=== PATIENT | male | born 1930 | race Caucasian/White ===

== ENCOUNTER 2016-03-23 08:57 | Inpatient (IN) | payer MEDICARE, BC ==
[2016-03-23] MEDS ORDERED: IPRATROPIUM-ALBUTEROL 3 ML NEB INHALATION STA (09:24)
[2016-03-23] MEDS ORDERED: SODIUM CHLORIDE 0.9% 1,000 ML IV STA (09:24)
--- NOTE | 2016-03-23 09:30 | ED ---
SOB HPI - General Chief Complaint: Shortness of Breath Stated Complaint: LABORED BREATHING, WEAKNESS, HEART HX Time Seen by Provider: 03/23/16 09:12 Source: patient, family, RN notes reviewed Mode of arrival: wheelchair Limitations: no limitations - History of Present Illness Initial Comments: This is a 85-year-old male who presents with complaints of dyspnea also some generalized weakness fluid retention. He does have chronic diarrhea he did have an episode this morning. He previously was on oh p.m. which she cannot get any more now is on morphine sulfate. He feels generally weak at this time denies any fevers chills or sweats no chest pain no cough no overt abdominal pain. The patient recently had complaints of water retention and was placed on twice a day dosing of his water pill. MD Complaint: shortness of breath - Related Data Home Medications Medication Instructions Recorded Confirmed Allopurinol [Zyloprim] 300 mg PO HS 03/23/16 03/23/16 Aspirin 81 mg PO HS 03/23/16 03/23/16 Cholecalciferol [Vitamin D3] 1,000 unit PO DAILY 03/23/16 03/23/16 Finasteride [Proscar] 5 mg PO HS 03/23/16 03/23/16 Furosemide [Lasix] 40 mg PO DAILY 03/23/16 03/23/16 Levothyroxine Sodium [Synthroid] 75 mcg PO DAILY 03/23/16 03/23/16 Losartan [Cozaar] 50 mg PO HS 03/23/16 03/23/16 Metoprolol Succinate (ER) [Toprol 50 mg PO BID 03/23/16 03/23/16 Xl] Morphine Oral Soln [Morphine Oral 3 mg PO TID 03/23/16 03/23/16 Soln 2 MG/ML] Pravastatin Sodium [Pravachol] 20 mg PO MOTUWETHFR 03/23/16 03/23/16 Ranitidine HCl 300 mg PO HS 03/23/16 03/23/16 Terazosin HCl [Hytrin] 10 mg PO HS 03/23/16 03/23/16 Zolpidem [Ambien] 10 mg PO HS PRN 03/23/16 03/23/16 Allergies Allergy/AdvReac Type Severity Reaction Status Date / Time Penicillins Allergy Rash/Hives Verified 03/23/16 11:34 pneumococcal vaccine Allergy Rash/Hives Verified 03/23/16 11:34 Review of Systems ROS Statement: Those systems with pertinent positive or pertinent negative responses have been documented in the HPI. ROS Other: All systems not noted in ROS Statement are negative. Past Medical History Past Medical History: Heart Failure, GERD/Reflux, Hyperlipidemia, Hypertension, Thyroid Disorder History of Any Multi-Drug Resistant Organisms: None Reported Past Surgical History: AICD, Bowel Resection Past Psychological History: No Psychological Hx Reported Smoking Status: Former smoker Past Alcohol Use History: None Reported Past Drug Use History: None Reported General Exam - General Exam Comments Initial Comments: This is a well-developed well-nourished awake alert oriented 3 male Limitations: no limitations General appearance: alert, in no apparent distress Head exam: Present: atraumatic, normocephalic, normal inspection Eye exam: Present: normal appearance, PERRL, EOMI. Absent: scleral icterus, conjunctival injection, periorbital swelling ENT exam: Present: mucous membranes dry Neck exam: Present: normal inspection. Absent: tenderness, meningismus, lymphadenopathy Respiratory exam: Present: decreased breath sounds. Absent: respiratory distress, wheezes, rales, rhonchi, stridor Cardiovascular Exam: Present: regular rate, normal rhythm, normal heart sounds, other (Occasional extrasystoles). Absent: systolic murmur, diastolic murmur, rubs, gallop, clicks GI/Abdominal exam: Present: soft, distended, normal bowel sounds, other (Some increased tympany). Absent: tenderness, guarding, rebound, rigid, bruit, pulsatile mass, hernia Rectal exam: Present: deferred Extremities exam: Present: normal inspection, full ROM, normal capillary refill. Absent: tenderness, pedal edema, joint swelling, calf tenderness Back exam: Present: normal inspection Neurological exam: Present: alert, oriented X3, CN II-XII intact Psychiatric exam: Present: normal affect, normal mood Skin exam: Present: warm, dry, intact, normal color. Absent: rash Course Vital Signs 03/23/16 03/23/16 03/23/16 09:01 09:27 09:28 Temperature 97.8 F Pulse Rate 98 109 H Respiratory 20 109 H 18 Rate Blood Pressure 128/92 113/73 O2 Sat by Pulse 96 98 Oximetry 01/07/17 01/07/17 01/07/17 10:05 10:13 10:14 Temperature Pulse Rate 100 92 87 Respiratory 18 Rate Blood Pressure 133/70 O2 Sat by Pulse 98 Oximetry 03/23/16 03/23/16 10:27 11:18 Temperature Pulse Rate 81 77 Respiratory 18 18 Rate Blood Pressure 131/69 121/79 O2 Sat by Pulse 97 99 Oximetry - Reevaluation(s) Reevaluation #1: 03/23/16 12:31 Patient is feeling slightly better after initial treatment. Reevaluation #2: 03/23/16 12:31 Did discuss the findings with patient family patient will be admitted Reevaluation #3: 03/23/16 12:31 Patient is demonstrating hypokalemia a low magnesium in addition to congestive heart failure. Medical Decision Making - Lab Data Result diagrams: 03/23/16 09:20 03/23/16 09:20 Lab Results 03/23/16 03/23/16 03/23/16 Range/Units 09:20 09:20 09:20 WBC 3.4 L (3.8-10.6) k/uL RBC 3.46 L (4.30-5.90) m/uL Hgb 9.9 L (13.0-17.5) gm/dL Hct 32.8 L (39.0-53.0) % MCV 94.8 (80.0-100.0) fL MCH 28.6 (25.0-35.0) pg MCHC 30.2 L (31.0-37.0) g/dL RDW 16.2 H (11.5-15.5) % Plt Count 95 L (150-450) k/uL Neutrophils % 77 % Lymphocytes % 14 % Monocytes % 7 % Eosinophils % 0 % Basophils % 0 % Neutrophils # 2.6 (1.3-7.7) k/uL Lymphocytes # 0.5 L (1.0-4.8) k/uL Monocytes # 0.2 (0-1.0) k/uL Eosinophils # 0.0 (0-0.7) k/uL Basophils # 0.0 (0-0.2) k/uL Hypochromasia Marked Poikilocytosis Moderate Anisocytosis Slight PT (9.0-12.0) sec INR (<1.1) APTT (22.0-30.0) sec Sodium 145 (137-145) mmol/L Potassium 3.1 L (3.5-5.1) mmol/L Chloride 108 H (98-107) mmol/L Carbon Dioxide 23 (22-30) mmol/L Anion Gap 14 mmol/L BUN 16 (9-20) mg/dL Creatinine 1.00 (0.66-1.25) mg/dL Est GFR (MDRD) Af Amer >60 (>60 ml/min/1.73 sqM) Est GFR (MDRD) Non-Af >60 (>60 ml/min/1.73 sqM) Glucose 108 H (74-99) mg/dL Calcium 8.9 (8.4-10.2) mg/dL Magnesium 1.7 (1.6-2.3) mg/dL Total Bilirubin 1.5 H (0.2-1.3) mg/dL AST 14 L (17-59) U/L ALT 30 (21-72) U/L Alkaline Phosphatase 93 (38-126) U/L Total Creatine Kinase 43 L (55-170) U/L CK-MB (CK-2) 0.8 (0.0-2.4) ng/mL CK-MB (CK-2) Rel Index 1.9 Troponin I <0.012 (0.000-0.034) ng/mL NT-Pro-B Natriuret Pep pg/mL Total Protein 6.6 (6.3-8.2) g/dL Albumin 3.7 (3.5-5.0) g/dL TSH <0.015 L (0.465-4.680) mIU/L Free T4 2.05 (0.78-2.19) ng/dL 03/23/16 03/23/16 Range/Units 09:20 09:20 WBC (3.8-10.6) k/uL RBC (4.30-5.90) m/uL Hgb (13.0-17.5) gm/dL Hct (39.0-53.0) % MCV (80.0-100.0) fL MCH (25.0-35.0) pg MCHC (31.0-37.0) g/dL RDW (11.5-15.5) % Plt Count (150-450) k/uL Neutrophils % % Lymphocytes % % Monocytes % % Eosinophils % % Basophils % % Neutrophils # (1.3-7.7) k/uL Lymphocytes # (1.0-4.8) k/uL Monocytes # (0-1.0) k/uL Eosinophils # (0-0.7) k/uL Basophils # (0-0.2) k/uL Hypochromasia Poikilocytosis Anisocytosis PT 13.6 H (9.0-12.0) sec INR 1.4 (<1.1) APTT 24.9 (22.0-30.0) sec Sodium (137-145) mmol/L Potassium (3.5-5.1) mmol/L Chloride (98-107) mmol/L Carbon Dioxide (22-30) mmol/L Anion Gap mmol/L BUN (9-20) mg/dL Creatinine (0.66-1.25) mg/dL Est GFR (MDRD) Af Amer (>60 ml/min/1.73 sqM) Est GFR (MDRD) Non-Af (>60 ml/min/1.73 sqM) Glucose (74-99) mg/dL Calcium (8.4-10.2) mg/dL Magnesium (1.6-2.3) mg/dL Total Bilirubin (0.2-1.3) mg/dL AST (17-59) U/L ALT (21-72) U/L Alkaline Phosphatase (38-126) U/L Total Creatine Kinase (55-170) U/L CK-MB (CK-2) (0.0-2.4) ng/mL CK-MB (CK-2) Rel Index Troponin I (0.000-0.034) ng/mL NT-Pro-B Natriuret Pep 8410 pg/mL Total Protein (6.3-8.2) g/dL Albumin (3.5-5.0) g/dL TSH (0.465-4.680) mIU/L Free T4 (0.78-2.19) ng/dL - EKG Data -: EKG Interpreted by Me (Pacer rhythm rate was 92 QRS duration 144 QT/QTC of 420/519 occasional extr) Critical Care Time Critical Care Time: Yes Critical Care Time: 32 minutes of critical care time which includes initial presentation with history physical lab and x-rays reevaluation patient several occasions to responsive as the patient and family members regarding the findings. Discussion with the admitting physician admission orders review of old charting as available and Disposition Clinical Impression: Congestive heart failure, Hypokalemia, Anemia Disposition: ADMITTED IP TO THIS HOSP Condition: Stable
[2016-03-23 09:37] LABS: Anisocytosis Slight; Basophils % (A) 0 %; CH 29.4; CHCM 31.3; Eosinophils % (A) 0 %; HCT 32.8 % (39.0-53.0); HDW 4.16; HGB 9.9 gm/dL (13.0-17.5); Hypochromasia Marked; Luc # (Auto) 0.06; Luc % (Auto) 2; Lymphocytes # (A) 0.5 k/uL (1.0-4.8); Lymphocytes % (A) 14 %; MCH 28.6 pg (25.0-35.0); MCHC 30.2 g/dL (31.0-37.0); MCV 94.8 fL (80.0-100.0); Mean Platelet Volume 8.7; Monocytes # (A) 0.2 k/uL (0-1.0); Monocytes % (A) 7 %; Neutrophils # (A) 2.6 k/uL (1.3-7.7); Neutrophils % (A) 77 %; Poikilocytosis Moderate; RBC 3.46 m/uL (4.30-5.90); RDW 16.2 % (11.5-15.5); WBC 3.4 k/uL (3.8-10.6); WBC (Perox) 3.61
[2016-03-23 09:46] LABS: ALT 30 U/L (21-72); AST 14 U/L (17-59); Alkaline Phosphatase 93 U/L (38-126); Anion Gap 14 mmol/L; Blood Urea Nitrogen 16 mg/dL (9-20); Calcium 8.9 mg/dL (8.4-10.2); Carbon Dioxide 23 mmol/L (22-30); Chloride 108 mmol/L (98-107); Glucose 108 mg/dL (74-99); Magnesium 1.7 mg/dL (1.6-2.3); Non-African American GFR(MDRD) >60 (>60 ml/min/1.73 sqM); Potassium 3.1 mmol/L (3.5-5.1); Sodium 145 mmol/L (137-145); Total Bilirubin 1.5 mg/dL (0.2-1.3); Total Protein 6.6 g/dL (6.3-8.2)
[2016-03-23 09:51] LABS: INR 1.4 (<1.1); Partial Thromboplastin Time 24.9 sec (22.0-30.0); Prothrombin Time 13.6 sec (9.0-12.0)
--- NOTE | 2016-03-23 09:53 | XR ---
EXAMINATION TYPE: XR chest 2V DATE OF EXAM: 03/23/2016 9:47 AM COMPARISON: Chest x-ray August 07, 2011 HISTORY: Labored breathing. TECHNIQUE: Frontal and lateral views of the chest are obtained. FINDINGS: The osseous structures are demineralized. There is cardiomegaly with atherosclerotic and e ctatic thoracic aorta redemonstrated. Multilead pacemaker/AICD is again seen. Sternal wires and media stinal clips are redemonstrated. There is chronic parenchymal change with new mild central vascular c ongestion suspected. There is no suspicious focal airspace opacity, pleural effusion, or pneumothorax seen bilaterally IMPRESSION: Chronic parenchymal and/or emphysematous change is redemonstrated. Suspect CHF exacerbat ion as there is redemonstration of cardiomegaly with new mild central vascular congestion felt presen t.
[2016-03-23 09:56] LABS: Creatine Kinase 43 U/L (55-170)
--- NOTE | 2016-03-23 09:57 | XR ---
EXAMINATION TYPE: XR abdomen 1V DATE OF EXAM: 03/23/2016 9:47 AM CLINICAL HISTORY: Abdominal pain with diarrhea this morning. TECHNIQUE: 2 upright KUB images of the abdomen are obtained. COMPARISON: CT abdomen and pelvis August 09, 2011. Acute abdominal series August 11, 2011 FINDINGS: Epicardial pacer wires are noted. Scattered gas is seen in non-distended small bowel loops . Gas and fecal material is seen in non-distended colon. A few scattered air-fluid levels in the upp er abdomen are seen. No pneumoperitoneum is identified. Osseous structures are demineralized. There i s increasing scoliosis in the lumbar spine present. There is moderate degenerative change or joint sp lillian loss in both hips. Vascular calcification bilateral groin region is seen. There are large bladder calculi redemonstrated. There may be new 11 mm left mid ureter calculus just above left iliac wing. There is cardiomegaly with multi lead pacemaker/AICD. Lung bases are clear. IMPRESSION: Overall nonspecific likely nonobstructive bowel gas pattern.
[2016-03-23 10:09] LABS: Creatine Kinase MB 0.8 ng/mL (0.0-2.4); Troponin I <0.012 ng/mL (0.000-0.034)
[2016-03-23] MEDS ORDERED: FUROSEMIDE 10 MG/ML 4 ML VIAL IV STA (10:55)
[2016-03-23] MEDS ORDERED: NITROGLYCERIN OINT 1 INCH/GM PACKET TOPICAL STA (10:55)
[2016-03-23] MEDS: MAGNESIUM SULFATE-D5W PMX 1 GM in DEXTROSE/WATER 1 100ML.BAG IVPB SCH ×3 (11:15→22:15)
[2016-03-23] MEDS: POTASSIUM CHLORIDE 10 MEQ, LIDOCAINE 2% INJ 10 MG in SODIUM CHLORIDE 0.9% 100 ML IVPB SCH ×2 (11:15→12:23)
[2016-03-23] MEDS ORDERED: MORPHINE ORAL SOLN 10 MG/5 ML CUP PO STA (12:01)
[2016-03-23] MEDS: SODIUM CHLORIDE 0.9% 1,000 ML IV SCH (13:41)
--- NOTE | 2016-03-23 13:50 | P.HPIM ---
History of Present Illness H&P Date: 03/23/16 Chief Complaint: Shortness of breath This is an 85-year-old male. His primary care physician is Dr. Brayan An and his backup administrator is Dr. Magaña. 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 He also has history of bowel obstruction and peritonitis status post bowel resection with chronic diarrhea and is on MS to slow diarrhea. He gives history that since he started having episodes where he was weak and flushed and maybe was going to pass out but did not. He has also had shortness of breathand a warm sensation that was coming of his body from his feet. He states his defibrillator did not go off.. He last saw Dr. Brayan An on Friday and his Lasix 40 mg daily was increased frequency to twice daily. He thought it did a little bit of help for him but only a little. His daughter came to be with the patient and his and she thought he was significantly short of breath and brought him into [facility] emergency center this morning. His chest x-ray showed chronic parenchymal or emphysematous changes with congestive heart failure exacerbation and cardiomegaly. Abdominal x-rays showed nonobstructive bowel gas pattern. BNP 8410, magnesium 1.7, potassium 3.1. White count was 3.4, hemoglobin 9.9 and platelet count 95. Troponin 0.012. Initial blood pressure was 128/92. Patient has received potassium and magnesium replacement and Lasix 40 mg IV push with improvement of his symptoms of shortness of breath. He also received a DuoNeb treatment. Patient is now being admitted to the selective care unit and cardiology consult requested. Review of Systems All systems: negative Constitutional: Reports weight loss, Denies chills, Denies fever Eyes: denies blurred vision, denies pain Ears, nose, mouth and throat: Denies headache, Denies sore throat Cardiovascular: Reports decreased exercise tolerance, Reports dyspnea on exertion, Reports leg edema, Reports shortness of breath, Denies chest pain, Denies edema Respiratory: Reports dyspnea, Denies cough, Denies cough with sputum, Denies excessive sputum, Denies hemoptysis, Denies home oxygen Gastrointestinal: Denies abdominal pain, Denies diarrhea, Denies nausea, Denies vomiting Musculoskeletal: Denies myalgias Integumentary: Denies pruritus, Denies rash Neurological: Denies numbness, Denies weakness Psychiatric: Denies anxiety, Denies depression Endocrine: Denies fatigue, Denies weight change Past Medical History Past Medical History: Coronary Artery Disease (CAD), Heart Failure, GERD/Reflux , Hyperlipidemia, Hypertension, Thyroid Disorder Additional Past Medical History / Comment(s): Chronic systolic heart failure with ischemic cardiomyopathy status post pacemaker/AICD, myocardial infarction 2, one in 1996 and 2004, gout, vitamin D deficiency, chronic diarrhea on morphine sulfate History of Any Multi-Drug Resistant Organisms: None Reported Past Surgical History: AICD, Appendectomy, Bowel Resection, Cardiac Valve Replacement, Coronary Bypass/CABG Additional Past Surgical History / Comment(s): 1 vessel CABG and aortic valve replacement in 2004, pacemaker/AICD, bilateral cataract removal and intraocular lens implants, hemorrhoidectomy Past Psychological History: No Psychological Hx Reported Smoking Status: Former smoker Past Alcohol Use History: None Reported Additional Past Alcohol Use History / Comment(s): Smoker one and half to 2 packs per day for 50 years and quit in 1996. He denies any medical marijuana, marijuana, street drug or alcohol use. Past Drug Use History: None Reported - Past Family History Father Additional Family Medical History / Comment(s): Father at a young age in a house fire. Mother Additional Family Medical History / Comment(s): Mother in her 70s from congestive heart failure and coronary artery disease. Brother(s) Additional Family Medical History / Comment(s): Patient has 2 brothers. One from alcoholic cirrhosis. One is alive with history of osteoarthritis. Sister(s) Additional Family Medical History / Comment(s): Patient has one sister with recurrence of breast cancer. Daughter(s) Additional Family Medical History / Comment(s): Patient has one daughter with osteoarthritis of the spine. Son(s) Additional Family Medical History / Comment(s): Patient has 2 sons one has osteoarthritis and chronic back pain. One has bipolar disorder. Medications and Allergies Home Medications Medication Instructions Recorded Confirmed Type Allopurinol [Zyloprim] 300 mg PO HS 03/23/16 03/23/16 History Aspirin 81 mg PO HS 03/23/16 03/23/16 History Cholecalciferol [Vitamin D3] 1,000 unit PO DAILY 03/23/16 03/23/16 History Finasteride [Proscar] 5 mg PO HS 03/23/16 03/23/16 History Furosemide [Lasix] 40 mg PO DAILY 03/23/16 03/23/16 History Levothyroxine Sodium [Synthroid] 75 mcg PO DAILY 03/23/16 03/23/16 History Losartan [Cozaar] 50 mg PO HS 03/23/16 03/23/16 History Metoprolol Succinate (ER) [Toprol 50 mg PO BID 03/23/16 03/23/16 History Xl] Morphine Oral Soln [Morphine Oral 3 mg PO TID 03/23/16 03/23/16 History Soln 2 MG/ML] Pravastatin Sodium [Pravachol] 20 mg PO MOTUWETHFR 03/23/16 03/23/16 History Ranitidine HCl 300 mg PO HS 03/23/16 03/23/16 History Terazosin HCl [Hytrin] 10 mg PO HS 03/23/16 03/23/16 History Zolpidem [Ambien] 10 mg PO HS PRN 03/23/16 03/23/16 History Allergies Allergy/AdvReac Type Severity Reaction Status Date / Time Penicillins Allergy Rash/Hives Verified 03/23/16 11:34 pneumococcal vaccine Allergy Rash/Hives Verified 03/23/16 11:34 Physical Exam Gen: This is an 85-year-old male. He is resting on a stretcher and appears to be in no acute distress. HEENT: Head is atraumatic, normocephalic. Pupils equal, round. Sclerae is anicteric. Conjunctiva pink. Mucous membranes of the mouth are slightly dry. NECK: Supple. No JVD. No lymphadenopathy. No thyromegaly. LUNGS: Rhonchi to the bilateral bases. No wheezes. No chest wall tenderness. No intercostal retractions. HEART: Regular rate and rhythm. Systolic ejection murmur 2/6 at the left sternal border. Pacemaker noted to the left anterior chest wall. ABDOMEN: Soft. Bowel sounds are present. No masses. No tenderness. EXTREMITIES: Trace bilateral pedal edema. No calf tenderness. Dorsalis pedis + 1 bilaterally. NEUROLOGICAL: Patient is awake, alert and oriented x3. Cranial nerves 2 through 12 are grossly intact. Results CBC & Chem 7: 03/24/16 04:33 03/24/16 04:33 Thrombosis Risk Factor Assmnt - DVT/VTE Prophylaxis DVT/VTE Prophylaxis: Pharmacologic Prophylaxis ordered, Mechanical Prophylaxis ordered Assessment and Plan Plan: 1. Acute on chronic systolic heart failure in a patient with history of ischemic cardiomyopathy. Continue Lasix 40 mg IV every 12 hours. PRETTY and daily weights. Cardiology consult. Echocardiogram. 2. Nonsustained V tach due to electrolyte abnormalities with hypomagnesemia and hypokalemia status post replacement in the emergency center.continue replacement. Cardiology consult. Patient may need defibrillator interrogated. 3. Pancytopenia of unclear etiology.haptoglobin, folate,iron panel, ferritin, GGT, LDH, vitamin B12 ordered. 4. History of coronary artery disease status post 1 vessel CABG and aortic valve disease status post aortic valve replacement. Continue Toprol-XL 50 mg twice daily, aspirin 81 mg daily, Pravachol 20 mg Friday through Friday. 5. Hypertension, hypertensive cardio vascular disease with left ventricular hypertrophy. Continue Toprol-XL 50 mg twice daily, losartan 50 mg at bedtime. 6. Hyperlipidemia. Continue Pravachol 40 mg Friday through Friday. 7. Hypothyroidism with TSH less than 0.015. Levothyroxine on hold patient was on 75 g daily. 8. Benign prostatic hypertrophy. Continue Yas Zosyn 10 mg at bedtime. 9. Gout. Hold allopurinol 300 mg at bedtime. 10. Vitamin D deficiency. Continue supplementation. 11. DVT prophylaxis. ROGELIO hose. No heparin due to thrombocytopenia. 12. Gastrointestinal prophylaxis. Protonix daily. Discharge plan: To be determined. PT and OT requested Impression and plan of care have been directed as dictated by the signing physician. Jessie Morales nurse practitioner acting as scribe for signing physician. Time with Patient: Greater than 30
[2016-03-23] MEDS ORDERED: MAGNESIUM SULFATE-D5W PMX 1 GM in DEXTROSE/WATER 1 100ML.BAG IVPB ONE (14:20)
[2016-03-23] MEDS: POTASSIUM CHLORIDE ER 20 MEQ TAB.ER PO SCH ×3 (15:58→20:16)
[2016-03-23] MEDS: MORPHINE ORAL SOLN 10 MG/5 ML CUP PO SCH ×2 (15:59→20:17)
[2016-03-23] MEDS: NITROGLYCERIN OINT 1 INCH/GM PACKET TOPICAL SCH ×2 (16:54→20:20)
[2016-03-23 17:32] LABS: Reticulocyte % 2.5 % (0.5-2.0)
[2016-03-23] MEDS ORDERED: DEXTROSE 5% IN WATER 100 ML with AMIODARONE 150 MG IV ONE (17:39)
[2016-03-23 17:50] LABS: % Iron Saturation 9.7 % (20-50)
[2016-03-23] MEDS: AMIODARONE 450 MG in DEXTROSE 5% IN WATER 250 ML IV SCH ×2 (18:02)
[2016-03-23 19:08] LABS: Magnesium 2.3 mg/dL (1.6-2.3); Potassium 3.8 mmol/L (3.5-5.1)
[2016-03-23] MEDS: ALLOPURINOL 300 MG TAB PO SCH (20:16)
[2016-03-23] MEDS: ASPIRIN 81 MG CHEW PO SCH (20:16)
[2016-03-23] MEDS: TERAZOSIN 5 MG CAP PO SCH (20:16)
[2016-03-23] MEDS: FUROSEMIDE 10 MG/ML 4 ML VIAL IV SCH (20:17)
[2016-03-23] MEDS: FINASTERIDE 5 MG TAB PO SCH (20:17)
[2016-03-23] MEDS: METOPROLOL SUCCINATE (ER) 25 MG TAB.ER.24H PO SCH (20:19)
[2016-03-23] MEDS ORDERED: METOPROLOL SUCCINATE (ER) 50 MG TAB.ER.24H PO SCH (21:00)
[2016-03-23] MEDS ORDERED: LOSARTAN 50 MG TAB PO SCH (21:00)
[2016-03-23] MEDS ORDERED: FAMOTIDINE 20 MG TAB PO SCH (21:00)
[2016-03-23 23:09] LABS: Glucose,Whole Blood 145 mg/dL (75-99)
[2016-03-24] MEDS: MAGNESIUM SULFATE-D5W PMX 1 GM in DEXTROSE/WATER 1 100ML.BAG IVPB SCH (00:07)
[2016-03-24] MEDS: ZOLPIDEM 10 MG TAB PO PRN ×2 (00:07→21:55)
[2016-03-24] MEDS: LIDOCAINE-D5W PMX 2G/500ML 2,000 MG in DEXTROSE/WATER 1 500ML.BAG IV SCH (00:56)
[2016-03-24] MEDS: AMIODARONE 450 MG in DEXTROSE 5% IN WATER 250 ML IV SCH ×6 (01:34→18:01)
[2016-03-24 05:06] LABS: Basophils % (A) 0 %; CH 28.7; CHCM 29.8; Eosinophils % (A) 0 %; HCT 30.4 % (39.0-53.0); HDW 4.03; HGB 9.1 gm/dL (13.0-17.5); Hypochromasia Marked; Luc # (Auto) 0.12; Luc % (Auto) 3; Lymphocytes # (A) 0.7 k/uL (1.0-4.8); Lymphocytes % (A) 20 %; MCH 29.2 pg (25.0-35.0); MCHC 30.1 g/dL (31.0-37.0); MCV 96.9 fL (80.0-100.0); Mean Platelet Volume 7.5; Monocytes # (A) 0.2 k/uL (0-1.0); Monocytes % (A) 7 %; Neutrophils # (A) 2.3 k/uL (1.3-7.7); Neutrophils % (A) 70 %; Poikilocytosis Moderate; RBC 3.14 m/uL (4.30-5.90); RDW 15.8 % (11.5-15.5); WBC 3.4 k/uL (3.8-10.6); WBC (Perox) 3.63
[2016-03-24 05:17] LABS: Anion Gap 10 mmol/L; Blood Urea Nitrogen 13 mg/dL (9-20); Calcium 8.5 mg/dL (8.4-10.2); Carbon Dioxide 25 mmol/L (22-30); Chloride 106 mmol/L (98-107); Glucose 115 mg/dL (74-99); Magnesium 2.5 mg/dL (1.6-2.3); Non-African American GFR(MDRD) >60 (>60 ml/min/1.73 sqM); Potassium 3.7 mmol/L (3.5-5.1); Sodium 141 mmol/L (137-145)
[2016-03-24] MEDS ORDERED: POTASSIUM CHLORIDE ER 20 MEQ TAB.ER PO SCH (06:00)
[2016-03-24] MEDS ORDERED: LEVOTHYROXINE 75 MCG TAB PO SCH (06:30)
[2016-03-24] MEDS: LEVOTHYROXINE 50 MCG TAB PO SCH (06:55)
[2016-03-24] MEDS: MORPHINE ORAL SOLN 10 MG/5 ML CUP PO SCH ×3 (08:28→17:11)
[2016-03-24] MEDS: FUROSEMIDE 10 MG/ML 4 ML VIAL IV SCH (08:30)
[2016-03-24] MEDS: POTASSIUM CHLORIDE ER 20 MEQ TAB.ER PO SCH (08:31)
[2016-03-24] MEDS: METOPROLOL SUCCINATE (ER) 25 MG TAB.ER.24H PO SCH ×2 (08:31→18:40)
[2016-03-24] MEDS: NITROGLYCERIN OINT 1 INCH/GM PACKET TOPICAL SCH ×3 (08:31→17:11)
[2016-03-24] MEDS ORDERED: FUROSEMIDE 40 MG TAB PO SCH (09:00)
--- NOTE | 2016-03-24 09:50 | P.PN ---
Subjective This is an 85-year-old male. His primary care physician is Dr. Brayan An and his special events driver is Dr. Magaña. 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 He also has history of bowel obstruction and peritonitis status post bowel resection with chronic diarrhea and is on MS to slow diarrhea. He gives history that since he started having episodes where he was weak and flushed and maybe was going to pass out but did not. He has also had shortness of breathand a warm sensation that was coming of his body from his feet. He states his defibrillator did not go off.. He last saw Dr. Brayan An on Friday and his Lasix 40 mg daily was increased frequency to twice daily. He thought it did a little bit of help for him but only a little. His daughter came to be with the patient and his and she thought he was significantly short of breath and brought him into [facility] emergency center this morning. His chest x-ray showed chronic parenchymal or emphysematous changes with congestive heart failure exacerbation and cardiomegaly. Abdominal x-rays showed nonobstructive bowel gas pattern. BNP 8410, magnesium 1.7, potassium 3.1. White count was 3.4, hemoglobin 9.9 and platelet count 95. Troponin 0.012. Initial blood pressure was 128/92. Patient has received potassium and magnesium replacement and Lasix 40 mg IV push with improvement of his symptoms of shortness of breath. He also received a DuoNeb treatment. Patient is now being admitted to the selective care unit and cardiology consult requested. 03/24: patient continued to have episodes of ventricular tachycardia and has been transferred to the intensive care unit and started on lidocaine drip and amiodarone drip. Patient states he is feeling much better today. he is having less frequent runs of V. tach. CODE STATUS has been changed to DO NOT RESUSCITATE. Objective - Vital Signs Vital signs: Vital Signs Temp 97.5 F L 03/24/16 08:00 Pulse 69 03/24/16 08:00 Resp 19 03/24/16 08:00 BP 101/64 03/24/16 08:00 Pulse Ox 96 03/24/16 08:00 Intake & Output 03/23/16 03/24/16 03/24/16 18:59 06:59 18:59 Intake Total 100 952.1 166.6 Output Total 300 600 50 Balance -200 352.1 116.6 Weight 69.1 kg 73.7 kg Intake: IV 133.2 66.6 Amiodarone 450 mg In 133.2 66.6 Dextrose 5% in Water 250 ml @ 1 MG/MIN 34.53 mls/ hr IV .Q7H31M BARB Rx#: [id number] Intake, IV Titration 818.9 100 Amount Amiodarone 450 mg In 358.9 Dextrose 5% in Water 250 ml @ 1 MG/MIN 34.53 mls/ hr IV .Q7H31M BARB Rx#: [id number] Lidocaine-D5w Pmx 2G/ 180 60 500Ml 2,000 mg In Dextrose/Water 1 500ml. bag @ 2 MG/MIN 30 mls/hr IV .[id number] BARB Rx#: [id number] Magnesium Sulfate-D5w Pmx 200 1 gm In Dextrose/Water 1 100ml.bag @ 100 mls/hr IVPB Q1H BARB Rx#: [id number] Sodium Chloride 0.9% 1, 20 000 ml @ 100 mls/hr IV . Q10H STA Rx#:[id number] Sodium Chloride 0.9% 1, 60 40 000 ml @ 20 mls/hr IV . Q24H BARB Rx#:[id number] Oral 100 Output: Urine 300 600 50 Other: Voiding Method Bedside Commode Urinal # Voids 1 # Bowel Movements 1 - Exam Gen: This is an 85-year-old male. He is resting on a stretcher and appears to be in no acute distress. HEENT: Head is atraumatic, normocephalic. Pupils equal, round. Sclerae is anicteric. Conjunctiva pink. Mucous membranes of the mouth are slightly dry. NECK: Supple. No JVD. No lymphadenopathy. No thyromegaly. LUNGS: Slightly diminished but otherwise clear to auscultation. No wheezes. No chest wall tenderness. No intercostal retractions. HEART: Regular rate and rhythm. Systolic ejection murmur 2/6 at the left sternal border. Pacemaker noted to the left anterior chest wall. ABDOMEN: Soft. Bowel sounds are present. No masses. No tenderness. EXTREMITIES: No bilateral pedal edema. No calf tenderness. Dorsalis pedis +1 bilaterally. NEUROLOGICAL: Patient is awake, alert and oriented x3. Cranial nerves 2 through 12 are grossly intact. - Labs CBC & Chem 7: 03/24/16 04:33 03/24/16 04:33 Labs: Abnormal Lab Results - Last 24 Hours (Table) 03/23/16 03/23/16 03/23/16 Range/Units 17:18 17:18 23:08 WBC (3.8-10.6) k/uL RBC (4.30-5.90) m/uL Hgb (13.0-17.5) gm/dL Hct (39.0-53.0) % MCHC (31.0-37.0) g/dL RDW (11.5-15.5) % Plt Count (150-450) k/uL Lymphocytes # (1.0-4.8) k/uL Retic Count 2.5 H (0.5-2.0) % Glucose (74-99) mg/dL POC Glucose (mg/dL) 145 H (75-99) mg/dL Magnesium (1.6-2.3) mg/dL Iron 34 L (49-181) ug/dL % Saturation 9.7 L (20-50) % 03/24/16 03/24/16 Range/Units 04:33 04:33 WBC 3.4 L (3.8-10.6) k/uL RBC 3.14 L (4.30-5.90) m/uL Hgb 9.1 L (13.0-17.5) gm/dL Hct 30.4 L (39.0-53.0) % MCHC 30.1 L (31.0-37.0) g/dL RDW 15.8 H (11.5-15.5) % Plt Count 88 L (150-450) k/uL Lymphocytes # 0.7 L (1.0-4.8) k/uL Retic Count (0.5-2.0) % Glucose 115 H (74-99) mg/dL POC Glucose (mg/dL) (75-99) mg/dL Magnesium 2.5 H (1.6-2.3) mg/dL Iron (49-181) ug/dL % Saturation (20-50) % Assessment and Plan Plan: 1. Acute on chronic systolic heart failure in a patient with history of ischemic cardiomyopathy. Continue Lasix 40 mg IV every 12 hours. PRETTY and daily weights. Cardiology consult. Echocardiogram. 2. Nonsustained V tach due to electrolyte abnormalities with hypomagnesemia and hypokalemia status post replacement in the emergency center. Continue replacement. Cardiology consult. Patient may need defibrillator interrogated. 3. Pancytopenia of unclear etiology. Haptoglobin, folate,iron panel, ferritin, GGT, LDH, vitamin B12 ordered. 4. History of coronary artery disease status post 1 vessel CABG and aortic valve disease status post aortic valve replacement. Continue Toprol-XL 50 mg twice daily, aspirin 81 mg daily, Pravachol 20 mg Friday through Friday. 5. Hypertension, hypertensive cardio vascular disease with left ventricular hypertrophy. Continue Toprol-XL 50 mg twice daily, losartan 50 mg at bedtime. 6. Hyperlipidemia. Continue Pravachol 40 mg Friday through Friday. 7. Hypothyroidism with TSH less than 0.015. Levothyroxine on hold patient was on 75 g daily. 8. Benign prostatic hypertrophy. Continue Yas Zosyn 10 mg at bedtime. 9. Gout. Hold allopurinol 300 mg at bedtime. 10. Vitamin D deficiency. Continue supplementation. 11. DVT prophylaxis. ROGELIO hosmichael. No heparin due to thrombocytopenia. 12. Gastrointestinal prophylaxis. Protonix daily. Code status: DNR Discharge plan: To be determined. PT and OT requested Impression and plan of care have been directed as dictated by the signing physician. Jessie Morales nurse practitioner acting as scribe for signing physician. Time with Patient: Greater than 30
[2016-03-24] MEDS: ACETAMINOPHEN TAB 500 MG TAB PO PRN ×2 (11:12→19:03)
--- NOTE | 2016-03-24 11:44 | P.CNPUL ---
History of Present Illness Consult date: 03/24/16 Reason for consult: dyspnea Chief complaint: Dyspnea and weakness History of present illness: This is an 85-year-old man who presented to the emergency department. He was admitted initially on the seventh to 6 selective. He was transferred to the ICU because of ventricular tachycardia. The patient was also found have some heart failure. Currently is doing reasonably well. He is on no supplemental oxygen. He is getting IV lidocaine which is been weaned down to 1 mg/m and amiodarone which is a 1 mg/m. He's got an IV of low 0.9 at KVO. Chest x-ray is consistent with mild CHF. He's feeling much better. Mildly hypotensive. Denies any complaints today. Next No shortness of breath. No chest pain. No fever no chills. No nausea vomiting or diarrhea. Review of Systems A 12 point review of system is essentially unremarkable now safer some mild weakness. The patient denies any chest pain chest discomfort shortness of breath cough wheezing coughing up phlegm or blood. No abdominal complaints. No fever no chills. Past Medical History Past Medical History: Coronary Artery Disease (CAD), Heart Failure, GERD/Reflux , Hyperlipidemia, Hypertension, Thyroid Disorder Additional Past Medical History / Comment(s): Chronic systolic heart failure with ischemic cardiomyopathy status post pacemaker/AICD, myocardial infarction 2, one in 1996 and 2004, gout, vitamin D deficiency, chronic diarrhea on morphine sulfate History of Any Multi-Drug Resistant Organisms: None Reported Past Surgical History: AICD, Appendectomy, Bowel Resection, Cardiac Valve Replacement, Coronary Bypass/CABG Additional Past Surgical History / Comment(s): 1 vessel CABG and aortic valve replacement in 2004, pacemaker/AICD, bilateral cataract removal and intraocular lens implants, hemorrhoidectomy Past Anesthesia/Blood Transfusion Reactions: No Reported Reaction Type of Cardiac Device: Permanent Pacemaker, AICD Device Placement Date:: 2007 Past Psychological History: No Psychological Hx Reported Smoking Status: Former smoker Past Alcohol Use History: None Reported Additional Past Alcohol Use History / Comment(s): Smoker one and half to 2 packs per day for 50 years and quit in 1996. He denies any medical marijuana, marijuana, street drug or alcohol use. Past Drug Use History: None Reported - Past Family History Father Additional Family Medical History / Comment(s): Father at a young age in a house fire. Mother Additional Family Medical History / Comment(s): Mother in her 70s from congestive heart failure and coronary artery disease. Brother(s) Additional Family Medical History / Comment(s): Patient has 2 brothers. One from alcoholic cirrhosis. One is alive with history of osteoarthritis. Sister(s) Additional Family Medical History / Comment(s): Patient has one sister with recurrence of breast cancer. Daughter(s) Additional Family Medical History / Comment(s): Patient has one daughter with osteoarthritis of the spine. Son(s) Additional Family Medical History / Comment(s): Patient has 2 sons one has osteoarthritis and chronic back pain. One has bipolar disorder. Medications and Allergies Home Medications Medication Instructions Recorded Confirmed Type Allopurinol [Zyloprim] 300 mg PO HS 03/23/16 03/23/16 History Aspirin 81 mg PO HS 03/23/16 03/23/16 History Cholecalciferol [Vitamin D3] 1,000 unit PO DAILY 03/23/16 03/23/16 History Finasteride [Proscar] 5 mg PO HS 03/23/16 03/23/16 History Furosemide [Lasix] 40 mg PO DAILY 03/23/16 03/23/16 History Levothyroxine Sodium [Synthroid] 75 mcg PO DAILY 03/23/16 03/23/16 History Losartan [Cozaar] 50 mg PO HS 03/23/16 03/23/16 History Metoprolol Succinate (ER) [Toprol 50 mg PO BID 03/23/16 03/23/16 History Xl] Morphine Oral Soln [Morphine Oral 3 mg PO TID 03/23/16 03/23/16 History Soln 2 MG/ML] Pravastatin Sodium [Pravachol] 20 mg PO [id number] 03/23/16 03/23/16 History Ranitidine HCl 300 mg PO HS 03/23/16 03/23/16 History Terazosin HCl [Hytrin] 10 mg PO HS 03/23/16 03/23/16 History Zolpidem [Ambien] 10 mg PO HS PRN 03/23/16 03/23/16 History Allergies Allergy/AdvReac Type Severity Reaction Status Date / Time Penicillins Allergy Rash/Hives Verified 03/23/16 11:34 pneumococcal vaccine Allergy Rash/Hives Verified 03/23/16 11:34 Physical Exam Osteopathic Statement: *. No significant issues noted on an osteopathic structural exam other than those noted in the History and Physical/Consult. Vitals: Vital Signs Temp Pulse Pulse Resp BP BP Pulse Ox 03/24/16 11:00 49 L 28 H 82/57 99 03/24/16 10:00 58 L 22 82/57 97 03/24/16 09:00 59 L 25 H 94/64 98 03/24/16 08:00 97.5 F L 69 95 19 101/64 96 03/24/16 07:51 99 03/24/16 07:00 70 21 96/65 96 03/24/16 06:30 62 20 99 03/24/16 06:00 57 L 17 98/66 99 03/24/16 05:30 57 L 26 H 99 03/24/16 05:00 71 22 97/66 97 03/24/16 04:30 73 27 H 99 03/24/16 04:00 98.3 F 73 95 27 H 97/66 98 03/24/16 03:30 64 100/66 96 03/24/16 03:00 71 94/68 96 03/24/16 02:30 73 95 03/24/16 02:00 74 94/68 99 03/24/16 01:30 79 98 03/24/16 01:00 71 96/58 98 03/24/16 00:30 74 98 03/24/16 00:00 98.3 F 71 95 93/56 98 03/23/16 23:30 66 95 03/23/16 23:08 94 L 03/23/16 21:00 97.4 F L 95 19 122/67 93 L 03/23/16 16:00 79 18 03/23/16 15:23 96.7 F L 79 18 109/67 98 03/23/16 14:00 96.9 F L 92 18 91/66 98 Intake and Output 03/23/16 03/24/16 03/24/16 22:59 06:59 14:59 Intake Total 952.1 634.5 Output Total 300 600 50 Balance -300 352.1 584.5 Intake: IV 133.2 166.5 Amiodarone 450 mg In 133.2 166.5 Dextrose 5% in Water 250 ml @ 1 MG/MIN 34.53 mls/ hr IV .Q7H31M BARB Rx#: [id number] Intake, IV Titration 818.9 468 Amount Amiodarone 450 mg In 358.9 Dextrose 5% in Water 250 ml @ 1 MG/MIN 34.53 mls/ hr IV .Q7H31M BARB Rx#: [id number] Lidocaine-D5w Pmx 2G/ 180 368 500Ml 2,000 mg In Dextrose/Water 1 500ml. bag @ 1 MG/MIN 15 mls/hr IV .Q24H BARB Rx#: [id number] Magnesium Sulfate-D5w Pmx 200 1 gm In Dextrose/Water 1 100ml.bag @ 100 mls/hr IVPB Q1H BARB Rx#: [id number] Sodium Chloride 0.9% 1, 20 000 ml @ 100 mls/hr IV . Q10H STA Rx#:[id number] Sodium Chloride 0.9% 1, 60 100 000 ml @ 20 mls/hr IV . Q24H BARB Rx#:[id number] Output: Urine 300 600 50 Other: Voiding Method Bedside Commode Bedside Commode Bedpan Urinal Urinal Urinal # Voids 1 1 # Bowel Movements 1 1 Weight 73.7 kg No acute distress, oriented 3. HEENT examination is grossly unremarkable. Mucous membranes are moist. No oral lesions. Neck supple. Full range of motion. No adenopathy or thyromegaly. Cardiovascular examination reveals a regular rhythm rate. S1-S2 normal. Heart rate 83. A soft systolic murmurs noted. Lungs are relatively clear. A few scattered rhonchi. No wheezes or crackles. Abdomen soft. Bowel sounds are heard. Extremities are intact. Results - Laboratory Findings CBC and BMP: 03/24/16 04:33 03/24/16 04:33 PT/INR, D-dimer PT 13.6 sec (9.0-12.0) H 03/23/16 09:20 INR 1.4 (<1.1) 03/23/16 09:20 Abnormal lab findings: Abnormal Labs 03/23/16 03/23/16 03/23/16 17:18 17:18 23:08 WBC RBC Hgb Hct MCHC RDW Plt Count Lymphocytes # Retic Count 2.5 H Glucose POC Glucose (mg/dL) 145 H Magnesium Iron 34 L % Saturation 9.7 L 03/24/16 03/24/16 04:33 04:33 WBC 3.4 L RBC 3.14 L Hgb 9.1 L Hct 30.4 L MCHC 30.1 L RDW 15.8 H Plt Count 88 L Lymphocytes # 0.7 L Retic Count Glucose 115 H POC Glucose (mg/dL) Magnesium 2.5 H Iron % Saturation - Diagnostic Findings Chest x-ray: image reviewed Assessment and Plan (1) Ventricular tachycardia Status: Acute (2) Hypertension Status: Acute (3) Hyperlipidemia Status: Acute (4) Hypothyroidism Status: Acute (5) Congestive heart failure Status: Acute Plan: Plan dated 03/24/2016 The patient's doing well from my perspective. X-rays labs and medications are reviewed. Patient's currently on some IV lidocaine of 1 mg/m and amiodarone at 1 mg/m. Patient is not receiving any supplemental oxygen. His IV is appointment 9 at [facility]. He is very stable. He may move out of the ICU later today. Time with Patient: Greater than 30
[2016-03-24] MEDS: CHOLECALCIFEROL 1,000 UNIT TAB PO SCH (13:33)
[2016-03-24] MEDS: SODIUM CHLORIDE 0.9% 1,000 ML IV SCH (13:33)
[2016-03-24] MEDS ORDERED: SODIUM CHLORIDE 0.9% 1,000 ML IV ONE (18:05)
--- NOTE | 2016-03-24 18:36 | P.CRDCN ---
History of Present Illness Consult date: 03/24/16 History of present illness: This is a pleasant 85-year-old gentleman who sees Dr. Magaña as an outpatient with a past medical history significant for coronary artery disease and prior bypass, aortic valve replacement, severity ischemic cardiomyopathy and status post AICD, as well as multiple comorbid conditions was brought to the hospital by his daughter because he was not feeling well. The patient symptoms started about 6 weeks ago where he started experiencing intermittent episodes of warm feeling in the face and the neck associated with dizziness and lightheadedness and shortness of breath. He feels that he almost passing out but he did not pass out. He did not have any symptoms of chest pain or chest discomfort. Over the last few days he has been experiencing progressive exertional dyspnea and also bilateral lower extremities edema. Upon presentation to the hospital the patient was admitted initially to the selective units. He was experiencing intermittent episodes of nonsustained ventricular tachycardia but the patient potassium and magnesium were low and both where replaced. Subsequently he was transferred into the intensive care unit where he was started on amiodarone IV, lidocaine IV, and Lasix IV. On follow-up with him today, the patient seems to be doing slightly better. The blood pressure is low and I am going to decrease the dose of Lasix to 40 mg IV daily and DC the losartan. Both magnesium and potassium seems to be better. Also he is on Nitropaste which I am going to stop. Past Medical History Past Medical History: Coronary Artery Disease (CAD), Heart Failure, GERD/Reflux , Hyperlipidemia, Hypertension, Thyroid Disorder Additional Past Medical History / Comment(s): Chronic systolic heart failure with ischemic cardiomyopathy status post pacemaker/AICD, myocardial infarction 2, one in 1996 and 2004, gout, vitamin D deficiency, chronic diarrhea on morphine sulfate History of Any Multi-Drug Resistant Organisms: None Reported Past Surgical History: AICD, Appendectomy, Bowel Resection, Cardiac Valve Replacement, Coronary Bypass/CABG Additional Past Surgical History / Comment(s): 1 vessel CABG and aortic valve replacement in 2004, pacemaker/AICD, bilateral cataract removal and intraocular lens implants, hemorrhoidectomy Past Anesthesia/Blood Transfusion Reactions: No Reported Reaction Type of Cardiac Device: Permanent Pacemaker, AICD Device Placement Date:: 2007 Past Psychological History: No Psychological Hx Reported Smoking Status: Former smoker Past Alcohol Use History: None Reported Additional Past Alcohol Use History / Comment(s): Smoker one and half to 2 packs per day for 50 years and quit in 1996. He denies any medical marijuana, marijuana, street drug or alcohol use. Past Drug Use History: None Reported - Past Family History Father Additional Family Medical History / Comment(s): Father at a young age in a house fire. Mother Additional Family Medical History / Comment(s): Mother in her 70s from congestive heart failure and coronary artery disease. Brother(s) Additional Family Medical History / Comment(s): Patient has 2 brothers. One from alcoholic cirrhosis. One is alive with history of osteoarthritis. Sister(s) Additional Family Medical History / Comment(s): Patient has one sister with recurrence of breast cancer. Daughter(s) Additional Family Medical History / Comment(s): Patient has one daughter with osteoarthritis of the spine. Son(s) Additional Family Medical History / Comment(s): Patient has 2 sons one has osteoarthritis and chronic back pain. One has bipolar disorder. Medications and Allergies Home Medications Medication Instructions Recorded Confirmed Type Allopurinol [Zyloprim] 300 mg PO HS 03/23/16 03/23/16 History Aspirin 81 mg PO HS 03/23/16 03/23/16 History Cholecalciferol [Vitamin D3] 1,000 unit PO DAILY 03/23/16 03/23/16 History Finasteride [Proscar] 5 mg PO HS 03/23/16 03/23/16 History Furosemide [Lasix] 40 mg PO DAILY 03/23/16 03/23/16 History Levothyroxine Sodium [Synthroid] 75 mcg PO DAILY 03/23/16 03/23/16 History Losartan [Cozaar] 50 mg PO HS 03/23/16 03/23/16 History Metoprolol Succinate (ER) [Toprol 50 mg PO BID 03/23/16 03/23/16 History Xl] Morphine Oral Soln [Morphine Oral 3 mg PO TID 03/23/16 03/23/16 History Soln 2 MG/ML] Pravastatin Sodium [Pravachol] 20 mg PO MOTUWETHFR 03/23/16 03/23/16 History Ranitidine HCl 300 mg PO HS 03/23/16 03/23/16 History Terazosin HCl [Hytrin] 10 mg PO HS 03/23/16 03/23/16 History Zolpidem [Ambien] 10 mg PO HS PRN 03/23/16 03/23/16 History Allergies Allergy/AdvReac Type Severity Reaction Status Date / Time Penicillins Allergy Rash/Hives Verified 03/23/16 11:34 pneumococcal vaccine Allergy Rash/Hives Verified 03/23/16 11:34 Physical Exam Vitals: Vital Signs Temp Pulse Pulse Resp BP BP Pulse Ox 03/24/16 18:00 50 L 16 72/53 100 03/24/16 17:00 49 L 27 H 77/48 100 03/24/16 16:00 97.4 F L 49 L 95 26 H 82/62 92 L 03/24/16 15:00 52 L 19 78/50 93 L 03/24/16 14:00 51 L 21 82/52 99 03/24/16 13:00 58 L 21 82/62 94 L 03/24/16 12:00 97.6 F 58 L 95 23 82/60 99 03/24/16 11:00 49 L 28 H 82/57 99 03/24/16 10:00 58 L 22 82/57 97 03/24/16 09:00 59 L 25 H 94/64 98 03/24/16 08:00 97.5 F L 69 95 19 101/64 96 03/24/16 07:51 99 03/24/16 07:00 70 21 96/65 96 03/24/16 06:30 62 20 99 03/24/16 06:00 57 L 17 98/66 99 03/24/16 05:30 57 L 26 H 99 03/24/16 05:00 71 22 97/66 97 03/24/16 04:30 73 27 H 99 03/24/16 04:00 98.3 F 73 95 27 H 97/66 98 03/24/16 03:30 64 100/66 96 03/24/16 03:00 71 94/68 96 03/24/16 02:30 73 95 03/24/16 02:00 74 94/68 99 03/24/16 01:30 79 98 03/24/16 01:00 71 96/58 98 03/24/16 00:30 74 98 03/24/16 00:00 98.3 F 71 95 93/56 98 03/23/16 23:30 66 95 03/23/16 23:08 94 L 03/23/16 21:00 97.4 F L 95 19 122/67 93 L Intake and Output 03/24/16 03/24/16 03/24/16 06:59 14:59 22:59 Intake Total 952.1 794.4 1472.2 Output Total 600 150 50 Balance 352.1 644.4 1422.2 Intake: IV 133.2 266.4 1133.2 Amiodarone 450 mg In 133.2 266.4 133.2 Dextrose 5% in Water 250 ml @ 1 MG/MIN 34.53 mls/ hr IV .Q7H31M [facility] Rx#: [id number] Sodium Chloride 0.9% 1, 1000 000 ml @ 999 mls/hr IV . Q1H1M [facility] Rx#:[id number] Intake, IV Titration 818.9 528 339 Amount Amiodarone 450 mg In 358.9 Dextrose 5% in Water 250 ml @ 1 MG/MIN 34.53 mls/ hr IV .Q7H31M [facility] Rx#: [id number] Amiodarone 450 mg In 259 Dextrose 5% in Water 250 ml @ 1 MG/MIN 34.53 mls/ hr IV .Q7H31M [facility] Rx#: [id number] Lidocaine-D5w Pmx 2G/ 180 368 500Ml 2,000 mg In Dextrose/Water 1 500ml. bag @ 1 MG/MIN 15 mls/hr IV .Q24H [facility] Rx#: [id number] Magnesium Sulfate-D5w Pmx 200 1 gm In Dextrose/Water 1 100ml.bag @ 100 mls/hr IVPB Q1H [facility] Rx#: [id number] Sodium Chloride 0.9% 1, 20 000 ml @ 100 mls/hr IV . Q10H [facility] Rx#:[id number] Sodium Chloride 0.9% 1, 60 160 80 000 ml @ 20 mls/hr IV . Q24H [facility] Rx#:[id number] Output: Urine 600 150 50 Other: Voiding Method Bedside Commode Bedpan Bedpan Urinal Urinal Urinal # Voids 1 # Bowel Movements 1 Weight 73.7 kg - Constitutional General appearance: no acute distress - Respiratory Respiratory: bilateral: diminished - Cardiovascular Heart sounds: normal: S1, S2 Abnormal Heart Sounds: systolic murmur Results 03/24/16 04:33 03/24/16 12:12 Cardiac Enzymes 03/23/16 Range/Units 17:18 Lactate Dehydrogenase 512 (313-618) U/L CBC 03/24/16 Range/Units 04:33 WBC 3.4 L (3.8-10.6) k/uL RBC 3.14 L (4.30-5.90) m/uL Hgb 9.1 L (13.0-17.5) gm/dL Hct 30.4 L (39.0-53.0) % Plt Count 88 L (150-450) k/uL Comprehensive Metabolic Panel 03/23/16 03/24/16 03/24/16 Range/Units 17:18 04:33 12:12 Sodium 141 (137-145) mmol/L Potassium 3.8 3.7 4.0 (3.5-5.1) mmol/L Chloride 106 (98-107) mmol/L Carbon Dioxide 25 (22-30) mmol/L BUN 13 (9-20) mg/dL Creatinine 1.06 (0.66-1.25) mg/dL Glucose 115 H (74-99) mg/dL Calcium 8.5 (8.4-10.2) mg/dL Current Medications Generic Name Dose Route Start Last Admin Trade Name Freq PRN Reason Stop Dose Admin Acetaminophen 1,000 mg 03/24/16 10:44 03/24/16 11:12 Tylenol Tab PO 1,000 mg Q6HR PRN Administration Fever and/ or Pain Allopurinol 300 mg 03/23/16 21:00 03/23/16 20:16 Zyloprim PO 300 mg HS [facility] Administration Aspirin 81 mg 03/23/16 21:00 03/23/16 20:16 Aspirin PO 81 mg HS [facility] Administration Cholecalciferol 1,000 unit 03/24/16 12:00 03/24/16 13:33 Vitamin D3 PO 1,000 unit DAILY@1200 [facility] Administration Finasteride 5 mg 03/23/16 21:00 03/23/16 20:17 Proscar PO 5 mg HS [facility] Administration Furosemide 40 mg 03/25/16 09:00 Lasix IV DAILY [facility] Sodium Chloride 1,000 mls @ 20 mls/hr 03/23/16 12:45 03/24/16 13:33 Saline 0.9% IV 20 mls/hr .Q24H [facility] Administration Lidocaine HCl/Dextrose 2,000 500 mls @ 15 mls/hr 03/23/16 22:45 03/24/16 10: 12 mg/ IV Solution IV 1 mg/min .Q24H [facility] 15 mls/hr 1 MG/MIN Infusion Amiodarone HCl 450 mg/ 259 mls @ 34.53 mls/hr 03/24/16 08:00 03/24/16 18:01 Dextrose/Water IV 03/25/16 08:01 1 mg/min .Q7H31M [facility] 34.53 mls/hr Protocol Administration 1 MG/MIN Sodium Chloride 1,000 mls @ 999 mls/hr 03/24/16 18:05 03/24/16 18:17 Saline 0.9% IV 03/24/16 19:05 999 mls/hr .Q1H1M ONE Administration Levothyroxine Sodium 50 mcg 03/24/16 06:30 03/24/16 06:55 Synthroid PO 50 mcg DAILY@0630 [facility] Administration Losartan Potassium 50 mg 03/23/16 21:00 03/23/16 20:16 Cozaar PO 50 mg HS [facility] Administration Metoprolol Succinate 75 mg 03/23/16 21:00 03/24/16 08:31 Toprol Xl PO 75 mg BID [facility] Administration Morphine Sulfate 3 mg 03/24/16 08:00 03/24/16 17:11 Morphine 2 Mg/Ml Oral Soln PO Not Given AC-TID [facility] Pantoprazole Sodium 40 mg 03/24/16 21:00 Protonix IVP HS [facility] Potassium Chloride 20 meq 03/23/16 21:00 03/24/16 08:31 K-Dur 20 PO 20 meq BID [facility] Administration Pravastatin Sodium 20 mg 03/25/16 21:00 Pravachol PO MOTUWETHFR [facility] Terazosin HCl 10 mg 03/23/16 21:00 03/23/16 20:16 Hytrin PO 10 mg HS [facility] Administration Zolpidem Tartrate 10 mg 03/23/16 12:36 03/24/16 00:07 Ambien PO 10 mg HS PRN Administration sleep Intake and Output 03/24/16 03/24/16 03/24/16 06:59 14:59 22:59 Intake Total 952.1 794.4 1472.2 Output Total 600 150 50 Balance 352.1 644.4 1422.2 Intake: IV 133.2 266.4 1133.2 Amiodarone 450 mg In 133.2 266.4 133.2 Dextrose 5% in Water 250 ml @ 1 MG/MIN 34.53 mls/ hr IV .Q7H31M [facility] Rx#: [id number] Sodium Chloride 0.9% 1, 1000 000 ml @ 999 mls/hr IV . Q1H1M [facility] Rx#:[id number] Intake, IV Titration 818.9 528 339 Amount Amiodarone 450 mg In 358.9 Dextrose 5% in Water 250 ml @ 1 MG/MIN 34.53 mls/ hr IV .Q7H31M [facility] Rx#: [id number] Amiodarone 450 mg In 259 Dextrose 5% in Water 250 ml @ 1 MG/MIN 34.53 mls/ hr IV .Q7H31M [facility] Rx#: [id number] Lidocaine-D5w Pmx 2G/ 180 368 500Ml 2,000 mg In Dextrose/Water 1 500ml. bag @ 1 MG/MIN 15 mls/hr IV .Q24H [facility] Rx#: [id number] Magnesium Sulfate-D5w Pmx 200 1 gm In Dextrose/Water 1 100ml.bag @ 100 mls/hr IVPB Q1H [facility] Rx#: [id number] Sodium Chloride 0.9% 1, 20 000 ml @ 100 mls/hr IV . Q10H [facility] Rx#:[id number] Sodium Chloride 0.9% 1, 60 160 80 000 ml @ 20 mls/hr IV . Q24H [facility] Rx#:[id number] Output: Urine 600 150 50 Other: Voiding Method Bedside Commode Bedpan Bedpan Urinal Urinal Urinal # Voids 1 # Bowel Movements 1 Weight 73.7 kg 03/24/16 04:33 03/24/16 12:12 Assessment and Plan Plan: Assessment #1 frequent episodes of nonsustained VT #2 electrolytes imbalance with hypokalemia and hypomagnesemia #3 mild congestive heart failure exacerbation secondary to systolic dysfunction #4 severe underlying CAD with prior CABG #5 severity ischemic cardiomyopathy #6 status post aortic valve replacement #7 hypertension The plan #1 decrease the dose of Lasix and DC losartan #2 continue monitor the electrolytes #3 continue the amiodarone IV and lidocaine IV #4 ICD interrogation #5 follow-up with the patient
[2016-03-24] MEDS: PANTOPRAZOLE 40 MG/10 ML VIAL IVP SCH (19:04)
[2016-03-24] MEDS: ALLOPURINOL 300 MG TAB PO SCH (21:55)
[2016-03-24] MEDS: FINASTERIDE 5 MG TAB PO SCH (21:56)
[2016-03-24] MEDS: TERAZOSIN 5 MG CAP PO SCH (21:56)
[2016-03-24] MEDS: ASPIRIN 81 MG CHEW PO SCH (21:56)
[2016-03-25] MEDS: AMIODARONE 450 MG in DEXTROSE 5% IN WATER 250 ML IV SCH ×4 (01:22→06:42)
[2016-03-25] MEDS: LIDOCAINE-D5W PMX 2G/500ML 2,000 MG in DEXTROSE/WATER 1 500ML.BAG IV SCH (01:23)
[2016-03-25] MEDS: POTASSIUM CHLORIDE ER 20 MEQ TAB.ER PO SCH ×3 (01:24→20:55)
[2016-03-25 05:12] LABS: Anisocytosis Slight; Basophils % (A) 0 %; CH 28.9; CHCM 29.5; Eosinophils % (A) 0 %; HCT 31.7 % (39.0-53.0); HDW 3.76; HGB 9.3 gm/dL (13.0-17.5); Hypochromasia Marked; Luc # (Auto) 0.11; Luc % (Auto) 3; Lymphocytes # (A) 0.5 k/uL (1.0-4.8); Lymphocytes % (A) 11 %; MCHC 29.4 g/dL (31.0-37.0); MCV 98.8 fL (80.0-100.0); Macrocytosis Slight; Mean Platelet Volume 9.6; Monocytes # (A) 0.4 k/uL (0-1.0); Monocytes % (A) 8 %; Neutrophils # (A) 3.5 k/uL (1.3-7.7); Neutrophils % (A) 79 %; Poikilocytosis Slight; RBC 3.21 m/uL (4.30-5.90); WBC 4.5 k/uL (3.8-10.6)
[2016-03-25 05:23] LABS: Calcium 8.2 mg/dL (8.4-10.2); Magnesium 2.2 mg/dL (1.6-2.3); Phosphorous 4.9 mg/dL (2.5-4.5); Potassium 4.9 mmol/L (3.5-5.1); Total Bilirubin 1.6 mg/dL (0.2-1.3); Total Protein 5.7 g/dL (6.3-8.2)
[2016-03-25] MEDS: LEVOTHYROXINE 50 MCG TAB PO SCH (06:42)
--- NOTE | 2016-03-25 07:17 | XR ---
EXAMINATION TYPE: XR chest 1V portable DATE OF EXAM: 03/25/2016 6:47 AM HISTORY: Shortness of breath. COMPARISON: 03/23/2016 TECHNIQUE: Single view of the chest is submitted. FINDINGS: Demonstrated are scattered senescent parenchymal change. There is pulmonary venous congestion with scattered infiltrates noted in small effusions as well as c ardiomegaly compatible with congestive failure. Hilar and mediastinal structures are within normal limits. Degenerative changes are seen of the dorsal spine. IMPRESSION: 1. Progressive CHF changes.
[2016-03-25] MEDS: MORPHINE ORAL SOLN 10 MG/5 ML CUP PO SCH ×3 (08:18→17:49)
[2016-03-25] MEDS: METOPROLOL SUCCINATE (ER) 25 MG TAB.ER.24H PO SCH ×2 (08:20→21:00)
--- NOTE | 2016-03-25 08:52 | P.PN ---
Subjective This is a pleasant 85-year-old gentleman who sees Dr. Magaña as an outpatient with a past medical history significant for coronary artery disease and prior bypass, aortic valve replacement, severity ischemic cardiomyopathy and status post AICD, as well as multiple comorbid conditions was brought to the hospital by his daughter because he was not feeling well. The patient symptoms started about 6 weeks ago where he started experiencing intermittent episodes of warm feeling in the face and the neck associated with dizziness and lightheadedness and shortness of breath. He feels that he almost passing out but he did not pass out. He did not have any symptoms of chest pain or chest discomfort. Over the last few days he has been experiencing progressive exertional dyspnea and also bilateral lower extremities edema. Upon presentation to the hospital the patient was admitted initially to the selective units. He was experiencing intermittent episodes of nonsustained ventricular tachycardia but the patient potassium and magnesium were low and both where replaced. Subsequently he was transferred into the intensive care unit where he was started on amiodarone IV, lidocaine IV, and Lasix IV. On 03/25/2016, the patient is being seen in follow-up. The patient is still short of breath. He remains free of any chest pain. The cardiac rhythm is paced ventricularly and the patient is running a lower blood pressure with a systolic blood pressure in the mid 80s. He has developed an acute kidney injury in the creatinine is up to 2. His urine output is marginal and his low. No fever. No chills. No sweats. No chest pain. His chest x-ray from this morning shows pulmonary vessel congestion and scattered pulmonary infiltrates and small better pleural effusion and cardiomegaly consistent with CHF. He remains on a amiodarone drip and lidocaine drip Objective - Vital Signs Vital signs: Vital Signs Temp 96.7 F L 03/25/16 08:00 Pulse 50 L 03/25/16 08:00 Resp 20 03/25/16 08:00 BP 79/58 03/25/16 08:00 Pulse Ox 99 03/25/16 08:00 Intake & Output 03/24/16 03/25/16 03/25/16 18:59 06:59 18:59 Intake Total 2266.6 933.256 40 Output Total 200 350 Balance 2066.6 583.256 40 Weight 71.4 kg Intake: IV 1399.6 253.3 40 0.9 KVO 220 40 Amiodarone 450 mg In 399.6 33.3 Dextrose 5% in Water 250 ml @ 1 MG/MIN 34.53 mls/ hr IV .Q7H31M [facility] Rx#: [id number] Sodium Chloride 0.9% 1, 1000 000 ml @ 999 mls/hr IV . Q1H1M ONE Rx#:[id number] Intake, IV Titration 867 679.956 Amount Amiodarone 450 mg In 259 437.956 Dextrose 5% in Water 250 ml @ 1 MG/MIN 34.53 mls/ hr IV .Q7H31M [facility] Rx#: [id number] Lidocaine-D5w Pmx 2G/ 368 222 500Ml 2,000 mg In Dextrose/Water 1 500ml. bag @ 1 MG/MIN 15 mls/hr IV .Q24H [facility] Rx#: [id number] Sodium Chloride 0.9% 1, 240 20 000 ml @ 20 mls/hr IV . Q24H [facility] Rx#:[id number] Output: Urine 200 350 Other: Voiding Method Bedpan Urinal Urinal - Labs CBC & Chem 7: 03/25/16 05:02 03/25/16 05:02 Labs: Abnormal Lab Results - Last 24 Hours (Table) 03/25/16 03/25/16 Range/Units 05:02 05:02 RBC 3.21 L (4.30-5.90) m/uL Hgb 9.3 L (13.0-17.5) gm/dL Hct 31.7 L (39.0-53.0) % MCHC 29.4 L (31.0-37.0) g/dL RDW 16.0 H (11.5-15.5) % Plt Count 71 L (150-450) k/uL Lymphocytes # 0.5 L (1.0-4.8) k/uL Carbon Dioxide 20 L (22-30) mmol/L BUN 21 H (9-20) mg/dL Creatinine 2.16 H (0.66-1.25) mg/dL Glucose 117 H (74-99) mg/dL Calcium 8.2 L (8.4-10.2) mg/dL Phosphorus 4.9 H (2.5-4.5) mg/dL Total Bilirubin 1.6 H (0.2-1.3) mg/dL Total Protein 5.7 L (6.3-8.2) g/dL Albumin 3.0 L (3.5-5.0) g/dL Assessment and Plan Plan: Assessment #1 nonsustained VT the patient has an AICD in place, AICD needs to be interrogated #2 electrolytes imbalance with hypokalemia and hypomagnesemia #3 severe congestive heart failure exacerbation secondary to systolic dysfunction #4 severe underlying CAD with prior CABG #5 severe ischemic cardiomyopathy #6 status post mitral valve replacement #7 hypertension #8 acute kidney injury, likely due to a combination of cardiorenal factors and hypotension. The patient's urine output is marginal at this point. He is on no IV fluids. Lasix was dropped down to 40 mg IV every 24 hours. #9 normocytic anemia, hemoglobin is stable for now Plan Will stop the IV Lasix for now. Obtain an ultrasound of the kidneys the view of the underlying acute kidney injury. We'll discuss the case with cardiology. Unsure if the patient can handle inotropic agents such as dobutamine to augment his cardiac output. Amiodarone also needs to be switched to maintenance and this will be discussed further with cardiology. The AICD needs to be interrogated. Prognosis unfortunately is poor. CODE STATUS is DO NOT RESUSCITATE/DO NOT INTUBATE.
[2016-03-25] MEDS ORDERED: FUROSEMIDE 10 MG/ML 4 ML VIAL IV SCH (09:00)
[2016-03-25 10:13] VITALS: BMI 24.6
[2016-03-25] MEDS ORDERED: AMIODARONE 450 MG in DEXTROSE 5% IN WATER 250 ML IV SCH ×2 (10:30)
--- NOTE | 2016-03-25 10:58 | ECHOF ---
Referral Reason:LVF MEASUREMENTS -------- HEIGHT: 170.2 cm WEIGHT: 71.2 kg BP: 102/65 RVIDd: 4.3 cm (< 3.3) IVSd: 1.4 cm (0.6 - 1.1) LVIDd: 5.2 cm (3.9 - 5.3) LVPWd: 1.0 cm (0.6 - 1.1) IVSs: 1.4 cm LVIDs: 4.9 cm LVPWs: 1.7 cm LA Diam: 4.1 cm (2.7 - 3.8) LAESV Index (A-L): 66.73 ml/m Ao Diam: 3.2 cm (2.0 - 3.7) AV Cusp: 1.8 cm (1.5 - 2.6) RAP: 15.00 mmHg RVSP: 50.39 mmHg FINDINGS -------- Resting bradycardia (HR<60bpm). AICD This was a technically good study. The left ventricular size is normal. There is moderate concentric left ventricular hypertrophy. Overall left ventricular systolic function is severely impaired with, an EF < 20%. Global hypokinesis The right ventricle is severely enlarged. LA is severely dilated >40 ml/m2 The right atrium is normal in size. There is mild aortic valve sclerosis. The peak and mean MV gradients are 13.28mmHg 2.46mmHg as measured by doppler. Normal porcine bioprosthetic mitral valve. Mild tricuspid regurgitation present. There is moderate pulmonary hypertension. The right ventricular systolic pressure, as measured by Doppler, is 50.39mmHg. The pulmonic valve was not well visualized. The aortic root size is normal. The inferior vena cava is dilated with no significant inspiratory collapse which is consistent estimated right atrial pressure of >20 mmHg. There is no pericardial effusion. CONCLUSIONS -------- 1. Resting bradycardia (HR<60bpm). 2. The right atrium is normal in size. 3. There is mild aortic valve sclerosis. 4. The peak and mean MV gradients are 13.28mmHg 2.46mmHg as measured by doppler. 5. Normal porcine bioprosthetic mitral valve. 6. Mild tricuspid regurgitation present. 7. There is moderate pulmonary hypertension. 8. The right ventricular systolic pressure, as measured by Doppler, is 50.39mmHg. 9. The pulmonic valve was not well visualized. 10. The aortic root size is normal. 11. The inferior vena cava is dilated with no significant inspiratory collapse which is consistent estimated right atrial pressure of >20 mmHg. 12. AICD 13. There is no pericardial effusion. 14. This was a technically good study. 15. The left ventricular size is normal. 16. There is moderate concentric left ventricular hypertrophy. 17. Overall left ventricular systolic function is severely impaired with, an EF < 20%. 18. Global hypokinesis 19. The right ventricle is severely enlarged. 20. LA is severely dilated >40 ml/m2 [employer]: Beth Arrieta RDCS
--- NOTE | 2016-03-25 11:07 | US ---
EXAMINATION TYPE: US kidneys/renal and bladder DATE OF EXAM: 03/25/2016 10:18 AM COMPARISON: CT 2011 CLINICAL HISTORY: ARUNA. EXAM MEASUREMENTS: Right Kidney: 11.3 x 5.5 x 5.cm Left Kidney: 11.2 x 5.5 x 4.8 cm ANATOMY: Right Kidney: No hydronephrosis or masses seen Left Kidney: large stone lower pole = 1.6 cm, Some free fluid noted adjacent to left kidney. ? lower pole cyst= 1.4 x 1.5 x 1.0 cm difficult to evaluate d/t overlying bowel gas. ? area medial, upper sumeet e ? solid mass vs dromedary hump of renal tissue. Bladder: at least 3 stones seen within bladder. Largest = 3.9 cm. Bilateral Jets seen: no incidental finding of a thick walled GB, with gallstones and free fluid . IMPRESSION: 1. Left-sided nephrolithiasis without bruce hydronephrosis. 2. lobulated appearance of the left kidney. Probable dromedary hump however solid lesion is difficult to exclude. CT correlation is advised. 3. Cholelithiasis with gallbladder wall thickening. Normal Values: Renal Length = 9 - 12cm Bladder Wall: < 0.3cm
[2016-03-25] MEDS: CHOLECALCIFEROL 1,000 UNIT TAB PO SCH (12:52)
[2016-03-25] MEDS: SODIUM CHLORIDE 0.9% 1,000 ML IV SCH (12:54)
--- NOTE | 2016-03-25 14:20 | P.PN ---
Subjective This is an 85-year-old male. His primary care physician is Dr. Brayan An and his endocrinology nurse is Dr. Magaña. 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 He also has history of bowel obstruction and peritonitis status post bowel resection with chronic diarrhea and is on MS to slow diarrhea. He gives history that since he started having episodes where he was weak and flushed and maybe was going to pass out but did not. He has also had shortness of breathand a warm sensation that was coming of his body from his feet. He states his defibrillator did not go off.. He last saw Dr. Brayan An on Friday and his Lasix 40 mg daily was increased frequency to twice daily. He thought it did a little bit of help for him but only a little. His daughter came to be with the patient and his and she thought he was significantly short of breath and brought him into [facility] emergency center this morning. His chest x-ray showed chronic parenchymal or emphysematous changes with congestive heart failure exacerbation and cardiomegaly. Abdominal x-rays showed nonobstructive bowel gas pattern. BNP 8410, magnesium 1.7, potassium 3.1. White count was 3.4, hemoglobin 9.9 and platelet count 95. Troponin 0.012. Initial blood pressure was 128/92. Patient has received potassium and magnesium replacement and Lasix 40 mg IV push with improvement of his symptoms of shortness of breath. He also received a DuoNeb treatment. Patient is now being admitted to the selective care unit and cardiology consult requested. 03/24: patient continued to have episodes of ventricular tachycardia and has been transferred to the intensive care unit and started on lidocaine drip and amiodarone drip. Patient states he is feeling much better today. he is having less frequent runs of V. tach. CODE STATUS has been changed to DO NOT RESUSCITATE. 03/25: Patient remains in the intensive care unit. He is on amiodarone and lidocaine drips. He does have some shortness of breath with activity. He is found sitting up in a chair. Temperature has been running low but patient has been asymptomatic. Anticipate AICD/pacemaker will be interrogated and that amiodarone will be switched to oral. Heart rate 49. Echocardiogram reveals mild aortic valve sclerosis, mild tricuspid regurgitation, moderate pulmonary hypertension, moderate concentric left ventricular hypertrophy, EF less than 20 % with global hypokinesia. Right ventricle is severely enlarged and LA severely dilated greater than 40. Urine output is marginal and Lasix discontinued. BUN 21 and creatinine 2.16. Renal ultrasound shows left-sided nephrolithiasis without bruce hydronephrosis. Lobulated appearance of the left kidney. Probable dromedary hump however solid lesion is difficult to exclude. White count is now at 4.5, hemoglobin 9.3, platelet count 71. Objective - Vital Signs Vital signs: Vital Signs Temp 96.7 F L 03/25/16 08:00 Pulse 49 L 03/25/16 09:00 Resp 18 03/25/16 09:00 BP 102/65 03/25/16 09:00 Pulse Ox 96 03/25/16 09:00 Intake & Output 03/24/16 03/25/16 03/25/16 18:59 06:59 18:59 Intake Total 2266.6 933.256 60 Output Total 200 350 Balance 2066.6 583.256 60 Weight 71.4 kg Intake: IV 1399.6 253.3 60 0.9 KVO 220 60 Amiodarone 450 mg In 399.6 33.3 Dextrose 5% in Water 250 ml @ 1 MG/MIN 34.53 mls/ hr IV .Q7H31M [facility] Rx#: [id number] Sodium Chloride 0.9% 1, 1000 000 ml @ 999 mls/hr IV . Q1H1M [facility] Rx#:[id number] Intake, IV Titration 867 679.956 Amount Amiodarone 450 mg In 259 437.956 Dextrose 5% in Water 250 ml @ 1 MG/MIN 34.53 mls/ hr IV .Q7H31M [facility] Rx#: [id number] Lidocaine-D5w Pmx 2G/ 368 222 500Ml 2,000 mg In Dextrose/Water 1 500ml. bag @ 1 MG/MIN 15 mls/hr IV .Q24H [facility] Rx#: [id number] Sodium Chloride 0.9% 1, 240 20 000 ml @ 20 mls/hr IV . Q24H [facility] Rx#:[id number] Output: Urine 200 350 Other: Voiding Method Bedpan Urinal Urinal Urinal - Exam Gen: This is an 85-year-old male. He is resting on a stretcher and appears to be in no acute distress. HEENT: Head is atraumatic, normocephalic. Pupils equal, round. Sclerae is anicteric. Conjunctiva pink. Mucous membranes of the mouth are slightly dry. NECK: Supple. No JVD. No lymphadenopathy. No thyromegaly. LUNGS: Slightly diminished but otherwise clear to auscultation. No wheezes. No chest wall tenderness. No intercostal retractions. HEART: Regular rate and rhythm. Systolic ejection murmur 2/6 at the left sternal border. Pacemaker noted to the left anterior chest wall. ABDOMEN: Soft. Bowel sounds are present. No masses. No tenderness. EXTREMITIES: No bilateral pedal edema. No calf tenderness. Dorsalis pedis +1 bilaterally. NEUROLOGICAL: Patient is awake, alert and oriented x3. Cranial nerves 2 through 12 are grossly intact. - Labs CBC & Chem 7: 03/25/16 05:02 03/25/16 05:02 Labs: Abnormal Lab Results - Last 24 Hours (Table) 03/25/16 03/25/16 Range/Units 05:02 05:02 RBC 3.21 L (4.30-5.90) m/uL Hgb 9.3 L (13.0-17.5) gm/dL Hct 31.7 L (39.0-53.0) % MCHC 29.4 L (31.0-37.0) g/dL RDW 16.0 H (11.5-15.5) % Plt Count 71 L (150-450) k/uL Lymphocytes # 0.5 L (1.0-4.8) k/uL Carbon Dioxide 20 L (22-30) mmol/L BUN 21 H (9-20) mg/dL Creatinine 2.16 H (0.66-1.25) mg/dL Glucose 117 H (74-99) mg/dL Calcium 8.2 L (8.4-10.2) mg/dL Phosphorus 4.9 H (2.5-4.5) mg/dL Total Bilirubin 1.6 H (0.2-1.3) mg/dL Total Protein 5.7 L (6.3-8.2) g/dL Albumin 3.0 L (3.5-5.0) g/dL Assessment and Plan Plan: 1. Acute on chronic systolic heart failure in a patient with history of ischemic cardiomyopathy. Continue Lasix 40 mg IV every 12 hours. PRETTY and daily weights. Cardiology consult. Echocardiogram as above. 2. Nonsustained V tach due to electrolyte abnormalities with hypomagnesemia and hypokalemia status post replacement in the emergency center. Continue replacement. Cardiology consult. Patient may need defibrillator interrogated. 3. Pancytopenia of unclear etiology. Haptoglobin, folate,iron panel, ferritin, GGT, LDH, vitamin B12 ordered. 4. History of coronary artery disease status post 1 vessel CABG and aortic valve disease status post aortic valve replacement. Continue Toprol-XL 50 mg twice daily, aspirin 81 mg daily, Pravachol 20 mg Friday through Friday. 5. Hypertension, hypertensive cardio vascular disease with left ventricular hypertrophy. Continue Toprol-XL 50 mg twice daily, losartan 50 mg at bedtime. 6. Hyperlipidemia. Continue Pravachol 40 mg Friday through Friday. 7. Hypothyroidism with TSH less than 0.015. Levothyroxine on hold patient was on 75 g daily. 8. Benign prostatic hypertrophy. Continue Yas Zosyn 10 mg at bedtime. 9. Gout. Hold allopurinol 300 mg at bedtime. 10. Vitamin D deficiency. Continue supplementation. 11. Acute kidney injury. Renal ultrasound as above. Avoid nephrotoxic agents and hypotensive episodes. Lasix discontinued. 12. DVT prophylaxis. ROGELIO hose. No heparin due to thrombocytopenia. 13. Gastrointestinal prophylaxis. Protonix daily. Code status: DNR Discharge plan: To be determined. PT and OT requested Impression and plan of care have been directed as dictated by the signing physician. Jessie Morales nurse practitioner acting as scribe for signing physician. Time with Patient: Greater than 30
--- NOTE | 2016-03-25 16:41 | P.PN ---
Subjective Principal diagnosis: Cardiac arrhythmia This is a pleasant 85-year-old gentleman who sees Dr. Magaña as an outpatient with a past medical history significant for coronary artery disease and prior bypass, aortic valve replacement, severity ischemic cardiomyopathy and status post AICD, as well as multiple comorbid conditions was brought to the hospital by his daughter because he was not feeling well. The patient symptoms started about 6 weeks ago where he started experiencing intermittent episodes of warm feeling in the face and the neck associated with dizziness and lightheadedness and shortness of breath. He feels that he almost passing out but he did not pass out. He did not have any symptoms of chest pain or chest discomfort. Over the last few days he has been experiencing progressive exertional dyspnea and also bilateral lower extremities edema. Upon presentation to the hospital the patient was admitted initially to the selective units. He was experiencing intermittent episodes of nonsustained ventricular tachycardia but the patient potassium and magnesium were low and both where replaced. Subsequently he was transferred into the intensive care unit where he was started on amiodarone IV, lidocaine IV, and Lasix IV. On follow-up with him today, the patient seems to be doing slightly better. He is not experiencing any more episodes of nonsustained VT. I am going to DC the amiodarone IV, start the patient on amiodarone by mouth, and DC the lidocaine. The creatinine seems to be worse today and the Lasix was stopped. Objective - Vital Signs Vital signs: Vital Signs Temp 97.1 F L 03/25/16 16:00 Pulse 53 L 03/25/16 16:00 Resp 28 H 03/25/16 16:00 BP 106/68 03/25/16 16:00 Pulse Ox 92 L 03/25/16 16:00 Intake & Output 03/24/16 03/25/16 03/25/16 18:59 06:59 18:59 Intake Total 2266.6 933.256 700 Output Total 200 350 350 Balance 2066.6 583.256 350 Weight 71.4 kg 71.4 kg Intake: IV 1399.6 253.3 200 0.9 KVO 220 200 Amiodarone 450 mg In 399.6 33.3 Dextrose 5% in Water 250 ml @ 1 MG/MIN 34.53 mls/ hr IV .Q7H31M [facility] Rx#: [id number] Sodium Chloride 0.9% 1, 1000 000 ml @ 999 mls/hr IV . Q1H1M [facility] Rx#:[id number] Intake, IV Titration 867 679.956 Amount Amiodarone 450 mg In 259 437.956 Dextrose 5% in Water 250 ml @ 1 MG/MIN 34.53 mls/ hr IV .Q7H31M [facility] Rx#: [id number] Lidocaine-D5w Pmx 2G/ 368 222 500Ml 2,000 mg In Dextrose/Water 1 500ml. bag @ 1 MG/MIN 15 mls/hr IV .Q24H [facility] Rx#: [id number] Sodium Chloride 0.9% 1, 240 20 000 ml @ 20 mls/hr IV . Q24H [facility] Rx#:[id number] Oral 500 Output: Urine 200 350 350 Other: Voiding Method Bedpan Urinal Urinal Urinal - Constitutional General appearance: Present: no acute distress - Respiratory Respiratory: bilateral: diminished - Cardiovascular Heart sounds: normal: S1, S2 - Labs CBC & Chem 7: 03/25/16 05:02 03/25/16 05:02 Labs: Abnormal Lab Results - Last 24 Hours (Table) 03/25/16 03/25/16 Range/Units 05:02 05:02 RBC 3.21 L (4.30-5.90) m/uL Hgb 9.3 L (13.0-17.5) gm/dL Hct 31.7 L (39.0-53.0) % MCHC 29.4 L (31.0-37.0) g/dL RDW 16.0 H (11.5-15.5) % Plt Count 71 L (150-450) k/uL Lymphocytes # 0.5 L (1.0-4.8) k/uL Carbon Dioxide 20 L (22-30) mmol/L BUN 21 H (9-20) mg/dL Creatinine 2.16 H (0.66-1.25) mg/dL Glucose 117 H (74-99) mg/dL Calcium 8.2 L (8.4-10.2) mg/dL Phosphorus 4.9 H (2.5-4.5) mg/dL Total Bilirubin 1.6 H (0.2-1.3) mg/dL Total Protein 5.7 L (6.3-8.2) g/dL Albumin 3.0 L (3.5-5.0) g/dL Assessment and Plan Plan: Assessment #1 intermittent episodes of nonsustained VT #2 severe cardiomyopathy #3 status post AICD #4 multiple comorbid conditions Plan #1 DC the amiodarone IV and DC the lidocaine IV #2 start the patient on amiodarone by mouth #3 monitor the kidney function and electrolytes #4 follow-up with the patient
[2016-03-25] MEDS: ZOLPIDEM 10 MG TAB PO PRN (20:54)
[2016-03-25] MEDS: AMIODARONE 200 MG TAB PO SCH (20:54)
[2016-03-25] MEDS: ALLOPURINOL 300 MG TAB PO SCH (20:55)
[2016-03-25] MEDS: PANTOPRAZOLE 40 MG/10 ML VIAL IVP SCH (20:55)
[2016-03-25] MEDS: ASPIRIN 81 MG CHEW PO SCH (20:55)
[2016-03-25] MEDS: FINASTERIDE 5 MG TAB PO SCH (20:55)
[2016-03-25] MEDS: TERAZOSIN 5 MG CAP PO SCH (20:56)
[2016-03-25] MEDS: PRAVASTATIN SODIUM 20 MG TAB PO SCH (20:56)
[2016-03-26 04:57] LABS: Aty Lym Flag Slight; CH 28.7; CHCM 29.7; HCT 31.2 % (39.0-53.0); HDW 3.61; HGB 9.5 gm/dL (13.0-17.5); Hypochromasia Marked; MCH 29.6 pg (25.0-35.0); MCHC 30.4 g/dL (31.0-37.0); MCV 97.1 fL (80.0-100.0); Mean Platelet Volume 8.1; Poikilocytosis Slight; RBC 3.22 m/uL (4.30-5.90); RDW 15.8 % (11.5-15.5); WBC 2.7 k/uL (3.8-10.6); WBC (Perox) 2.72
[2016-03-26 05:11] LABS: Calcium 8.5 mg/dL (8.4-10.2); Magnesium 2.1 mg/dL (1.6-2.3); Phosphorous 4.7 mg/dL (2.5-4.5); Potassium 5.3 mmol/L (3.5-5.1); Total Bilirubin 1.1 mg/dL (0.2-1.3); Total Protein 5.9 g/dL (6.3-8.2)
[2016-03-26 05:59] LABS: Add Differential Manual Differential
[2016-03-26 06:02] LABS: Manual Review Performed; Nucleated Red Blood Cells 0 /100 WBC (0-0); Total Cells Counted 100
[2016-03-26 06:03] LABS: Large Platelets Present
--- NOTE | 2016-03-26 07:57 | XR ---
EXAMINATION TYPE: XR chest 1V DATE OF EXAM: 03/26/2016 7:02 AM CLINICAL HISTORY: Difficulty breathing and CHF progress study. TECHNIQUE: Single AP portable upright view of the chest is obtained. COMPARISON: Chest x-ray from one day earlier FINDINGS: Sternal wires are redemonstrated. There is persistent cardiomegaly with atherosclerotic an d ectatic thoracic aorta as well as multi lead pacemaker/AICD. There is chronic senescent change with bibasilar parenchymal scarring and/or atelectasis redemonstrated. There is possible developing left upper lung opacity adjacent aortic knob. No large pleural effusion or pneumothorax is seen bilaterall y. Mild central vascular congestion is felt improved. Osseous structures are demineralized. IMPRESSION: Chronic parenchymal change and cardiomegaly with improving central vascular congestion bu t possible developing left upper lobe infiltrate and/or atelectasis. Progress study advised.
[2016-03-26] MEDS: MORPHINE ORAL SOLN 10 MG/5 ML CUP PO SCH ×3 (08:44→17:28)
[2016-03-26] MEDS: AMIODARONE 200 MG TAB PO SCH ×2 (08:44→21:19)
--- NOTE | 2016-03-26 09:11 | P.PN ---
Subjective This is a pleasant 85-year-old gentleman who sees Dr. Magaña as an outpatient with a past medical history significant for coronary artery disease and prior bypass, aortic valve replacement, severity ischemic cardiomyopathy and status post AICD, as well as multiple comorbid conditions was brought to the hospital by his daughter because he was not feeling well. The patient symptoms started about 6 weeks ago where he started experiencing intermittent episodes of warm feeling in the face and the neck associated with dizziness and lightheadedness and shortness of breath. He feels that he almost passing out but he did not pass out. He did not have any symptoms of chest pain or chest discomfort. Over the last few days he has been experiencing progressive exertional dyspnea and also bilateral lower extremities edema. Upon presentation to the hospital the patient was admitted initially to the selective units. He was experiencing intermittent episodes of nonsustained ventricular tachycardia but the patient potassium and magnesium were low and both where replaced. Subsequently he was transferred into the intensive care unit where he was started on amiodarone IV, lidocaine IV, and Lasix IV. On 03/25/2016, the patient is being seen in follow-up. The patient is still short of breath. He remains free of any chest pain. The cardiac rhythm is paced ventricularly and the patient is running a lower blood pressure with a systolic blood pressure in the mid 80s. He has developed an acute kidney injury in the creatinine is up to 2. His urine output is marginal and his low. No fever. No chills. No sweats. No chest pain. His chest x-ray from this morning shows pulmonary vessel congestion and scattered pulmonary infiltrates and small better pleural effusion and cardiomegaly consistent with CHF. He remains on a amiodarone drip and lidocaine drip On 03/26/2016 the patient is being seen in follow-up. He remains short of breath with limited amount of activity and even at rest. His chest x-ray still showing cardiomegaly with mild small pleural effusions in the lung bases and mild pulmonary vascular congestion. He is free of any chest pain. His cardiac rhythm is still paced and the patient has not had any episodes of V. tach. Lidocaine was discontinued. He is currently on a oral maintenance amiodarone at a dose of 400 mg by mouth twice a day. Renal function remains impaired with a creatinine of 2.1. Nevertheless he is producing urine output in the order of 30-50 mL an hour. No major it right in disturbances at this point. No fever. No chills. No other complaints otherwise. Cardiology is on the case. I had stopped his Lasix yesterday and I'm in the process of restarting the diuretics. Objective - Vital Signs Vital signs: Vital Signs Temp 98.4 F 03/26/16 08:00 Pulse 73 03/26/16 08:00 Resp 17 03/26/16 08:00 BP 119/66 03/26/16 08:00 Pulse Ox 96 03/26/16 08:00 Intake & Output 03/25/16 03/26/16 03/26/16 18:59 06:59 18:59 Intake Total 740 240 40 Output Total 350 405 95 Balance 390 -165 -55 Weight 71.4 kg 75.6 kg Intake: IV 240 240 20 0.9 KVO 240 240 20 Intake, IV Titration 20 Amount Sodium Chloride 0.9% 1, 20 000 ml @ 20 mls/hr IV . Q24H [facility] Rx#:[id number] Oral 500 Output: Urine 350 405 95 Other: Voiding Method Urinal Indwelling Catheter Indwelling Catheter - Exam Gen: This is an 85-year-old male. He is resting on a stretcher and appears to be in no acute distress. HEENT: Head is atraumatic, normocephalic. Pupils equal, round. Sclerae is anicteric. Conjunctiva pink. Mucous membranes of the mouth are slightly dry. NECK: Supple. No JVD. No lymphadenopathy. No thyromegaly. LUNGS: Slightly diminished but otherwise clear to auscultation. No wheezes. No chest wall tenderness. No intercostal retractions. HEART: Regular rate and rhythm. Systolic ejection murmur 2/6 at the left sternal border. Pacemaker noted to the left anterior chest wall. ABDOMEN: Soft. Bowel sounds are present. No masses. No tenderness. EXTREMITIES: No bilateral pedal edema. No calf tenderness. Dorsalis pedis +1 bilaterally. NEUROLOGICAL: Patient is awake, alert and oriented x3. Cranial nerves 2 through 12 are grossly intact. - Labs CBC & Chem 7: 03/26/16 04:33 03/26/16 04:33 Labs: Abnormal Lab Results - Last 24 Hours (Table) 01/07/17 01/10/17 01/10/17 Range/Units 17:18 04:33 04:33 WBC 2.7 L (3.8-10.6) k/uL RBC 3.22 L (4.30-5.90) m/uL Hgb 9.5 L (13.0-17.5) gm/dL Hct 31.2 L (39.0-53.0) % MCHC 30.4 L (31.0-37.0) g/dL RDW 15.8 H (11.5-15.5) % Plt Count 91 L (150-450) k/uL Lymphocytes # (Manual) 0.7 L (1.0-4.8) k/uL Sodium 136 L (137-145) mmol/L Potassium 5.3 H (3.5-5.1) mmol/L Carbon Dioxide 20 L (22-30) mmol/L BUN 31 H (9-20) mg/dL Creatinine 2.18 H (0.66-1.25) mg/dL Phosphorus 4.7 H (2.5-4.5) mg/dL AST 99 H (17-59) U/L ALT 105 H (21-72) U/L Total Protein 5.9 L (6.3-8.2) g/dL Albumin 3.2 L (3.5-5.0) g/dL RBC Folate 1,139 H (280 - 791) ng/mL Assessment and Plan Plan: Assessment #1 nonsustained VT the patient has an AICD in place, currently on oral amiodarone 400 mg by mouth twice a day and of the IV lidocaine. Cardiac rhythm is paced without any significant arrhythmias. #2 electrolytes imbalance with hypokalemia and hypomagnesemia, recovered #3 severe congestive heart failure exacerbation secondary to systolic dysfunction him a echocardiogram was completed yesterday showed severe dilated myopathy with ejection fraction of less than 20% and moderate degree of pulmonary hypertension with an estimated PA pressure of 50 and moderate concentric left ventricular hypertrophy. The left atrium is severely dilated #4 severe underlying CAD with prior CABG #5 severe ischemic cardiomyopathy #6 status post mitral valve replacement #7 hypertension #8 acute kidney injury, likely due to a combination of cardiorenal factors and hypotension. The patient's urine output is marginal at this point. #9 normocytic anemia, hemoglobin is stable for now #10 DNR/DNI CODE STATUS Plan Continue the current treatment. Restart Lasix 40 by mouth By mouth twice a day. Monitor the renal function. Agree on oral amiodarone 400 mg by mouth twice a day. Restart the Toprol as long as his blood pressure will tolerate. Restart the Cozaar. We'll continue to follow up this patient along with the cardiology team. Prognosis unfortunately poor baseline above-mentioned comorbidities.
[2016-03-26] MEDS: METOPROLOL SUCCINATE (ER) 50 MG TAB.ER.24H PO SCH ×2 (11:31→21:17)
--- NOTE | 2016-03-26 11:39 | P.PN ---
Subjective Principal diagnosis: Cardiac arrhythmia This is a pleasant 85-year-old gentleman who sees Dr. Magaña as an outpatient with a past medical history significant for coronary artery disease and prior bypass, aortic valve replacement, severity ischemic cardiomyopathy and status post AICD, as well as multiple comorbid conditions was brought to the hospital by his daughter because he was not feeling well. The patient symptoms started about 6 weeks ago where he started experiencing intermittent episodes of warm feeling in the face and the neck associated with dizziness and lightheadedness and shortness of breath. He feels that he almost passing out but he did not pass out. He did not have any symptoms of chest pain or chest discomfort. Over the last few days he has been experiencing progressive exertional dyspnea and also bilateral lower extremities edema. Upon presentation to the hospital the patient was admitted initially to the selective units. He was experiencing intermittent episodes of nonsustained ventricular tachycardia but the patient potassium and magnesium were low and both where replaced. Subsequently he was transferred into the intensive care unit where he was started on amiodarone IV, lidocaine IV, and Lasix IV. On follow-up with him today, the patient seems to be doing slightly better. He is not experiencing any more episodes of nonsustained VT. he has been a bradycardic and I would decrease the dose of metoprolol to 50 mg by mouth twice a day and continue the amiodarone by mouth.. Objective - Vital Signs Vital signs: Vital Signs Temp 98.4 F 03/26/16 08:00 Pulse 70 03/26/16 11:00 Resp 23 03/26/16 11:00 BP 128/77 03/26/16 11:00 Pulse Ox 96 03/26/16 11:00 Intake & Output 03/25/16 03/26/16 03/26/16 18:59 06:59 18:59 Intake Total 740 240 100 Output Total 350 405 305 Balance 390 -165 -205 Weight 71.4 kg 75.6 kg Intake: IV 240 240 20 0.9 KVO 240 240 20 Intake, IV Titration 80 Amount Sodium Chloride 0.9% 1, 80 000 ml @ 20 mls/hr IV . Q24H [facility] Rx#:[id number] Oral 500 Output: Urine 350 405 305 Other: Voiding Method Urinal Indwelling Catheter Indwelling Catheter - Constitutional General appearance: Present: no acute distress - Respiratory Respiratory: bilateral: CTA - Cardiovascular Rhythm: regular Heart sounds: normal: S1, S2 - Labs CBC & Chem 7: 03/26/16 04:33 03/26/16 04:33 Labs: Abnormal Lab Results - Last 24 Hours (Table) 03/23/16 03/26/16 03/26/16 Range/Units 17:18 04:33 04:33 WBC 2.7 L (3.8-10.6) k/uL RBC 3.22 L (4.30-5.90) m/uL Hgb 9.5 L (13.0-17.5) gm/dL Hct 31.2 L (39.0-53.0) % MCHC 30.4 L (31.0-37.0) g/dL RDW 15.8 H (11.5-15.5) % Plt Count 91 L (150-450) k/uL Lymphocytes # (Manual) 0.7 L (1.0-4.8) k/uL Sodium 136 L (137-145) mmol/L Potassium 5.3 H (3.5-5.1) mmol/L Carbon Dioxide 20 L (22-30) mmol/L BUN 31 H (9-20) mg/dL Creatinine 2.18 H (0.66-1.25) mg/dL Phosphorus 4.7 H (2.5-4.5) mg/dL AST 99 H (17-59) U/L ALT 105 H (21-72) U/L Total Protein 5.9 L (6.3-8.2) g/dL Albumin 3.2 L (3.5-5.0) g/dL RBC Folate 1,139 H (280 - 791) ng/mL Assessment and Plan Plan: Assessment #1 intermittent episodes of nonsustained VT #2 severe cardiomyopathy #3 status post AICD #4 multiple comorbid conditions Plan #1 decrease the dose of metoprolol to 50 mg by mouth twice a day #2 continue amiodarone by mouth #3 monitor the kidney function and electrolytes #4 follow-up with the patient and the patient can be transferred to the floor.
[2016-03-26] MEDS: SODIUM CHLORIDE 0.9% 1,000 ML IV SCH (12:00)
[2016-03-26] MEDS: CHOLECALCIFEROL 1,000 UNIT TAB PO SCH (12:01)
[2016-03-26] MEDS: LEVOTHYROXINE 50 MCG TAB PO SCH (12:49)
--- NOTE | 2016-03-26 14:44 | P.PN ---
Subjective This is an 85-year-old male. His primary care physician is Dr. Brayan An and his geology instructor is Dr. Magaña. 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 He also has history of bowel obstruction and peritonitis status post bowel resection with chronic diarrhea and is on MS to slow diarrhea. He gives history that since he started having episodes where he was weak and flushed and maybe was going to pass out but did not. He has also had shortness of breathand a warm sensation that was coming of his body from his feet. He states his defibrillator did not go off.. He last saw Dr. Brayan An on Friday and his Lasix 40 mg daily was increased frequency to twice daily. He thought it did a little bit of help for him but only a little. His daughter came to be with the patient and his and she thought he was significantly short of breath and brought him into [facility] emergency center this morning. His chest x-ray showed chronic parenchymal or emphysematous changes with congestive heart failure exacerbation and cardiomegaly. Abdominal x-rays showed nonobstructive bowel gas pattern. BNP 8410, magnesium 1.7, potassium 3.1. White count was 3.4, hemoglobin 9.9 and platelet count 95. Troponin 0.012. Initial blood pressure was 128/92. Patient has received potassium and magnesium replacement and Lasix 40 mg IV push with improvement of his symptoms of shortness of breath. He also received a DuoNeb treatment. Patient is now being admitted to the selective care unit and cardiology consult requested. 03/24: patient continued to have episodes of ventricular tachycardia and has been transferred to the intensive care unit and started on lidocaine drip and amiodarone drip. Patient states he is feeling much better today. he is having less frequent runs of V. tach. CODE STATUS has been changed to DO NOT RESUSCITATE. 03/25: Patient remains in the intensive care unit. He is on amiodarone and lidocaine drips. He does have some shortness of breath with activity. He is found sitting up in a chair. Temperature has been running low but patient has been asymptomatic. Anticipate AICD/pacemaker will be interrogated and that amiodarone will be switched to oral. Heart rate 49. Echocardiogram reveals mild aortic valve sclerosis, mild tricuspid regurgitation, moderate pulmonary hypertension, moderate concentric left ventricular hypertrophy, EF less than 20 % with global hypokinesia. Right ventricle is severely enlarged and LA severely dilated greater than 40. Urine output is marginal and Lasix discontinued. BUN 21 and creatinine 2.16. Renal ultrasound shows left-sided nephrolithiasis without bruce hydronephrosis. Lobulated appearance of the left kidney. Probable dromedary hump however solid lesion is difficult to exclude. White count is now at 4.5, hemoglobin 9.3, platelet count 71. 1/10: Patient has been cleared by pulmonary medicine and cardiology for transfer to [facility]. Patient continues to have significant shortness of breath with minimal activity and generalized weakness. Potassium placed on hold this morning for elevated level. Metoprolol was decreased to 50 mg twice daily and he is now on amiodarone by mouth. Off lidocaine drip. Objective - Vital Signs Vital signs: Vital Signs Temp 98.3 F 03/26/16 12:00 Pulse 75 03/26/16 12:00 Resp 22 03/26/16 12:00 BP 123/72 03/26/16 12:00 Pulse Ox 96 03/26/16 12:00 Intake & Output 03/25/16 03/26/16 03/26/16 18:59 06:59 18:59 Intake Total 740 240 120 Output Total 350 405 365 Balance 390 -165 -245 Weight 71.4 kg 75.6 kg Intake: IV 240 240 20 0.9 KVO 240 240 20 Intake, IV Titration 100 Amount Sodium Chloride 0.9% 1, 100 000 ml @ 20 mls/hr IV . Q24H [facility] Rx#:[id number] Oral 500 Output: Urine 350 405 365 Other: Voiding Method Urinal Indwelling Catheter Indwelling Catheter - Exam Gen: This is an 85-year-old male. He is resting on a stretcher and appears to be in no acute distress. HEENT: Head is atraumatic, normocephalic. Pupils equal, round. Sclerae is anicteric. Conjunctiva pink. Mucous membranes of the mouth are slightly dry. NECK: Supple. No JVD. No lymphadenopathy. No thyromegaly. LUNGS: Slightly diminished but otherwise clear to auscultation. No wheezes. No chest wall tenderness. No intercostal retractions. HEART: Regular rate and rhythm. Systolic ejection murmur 2/6 at the left sternal border. Pacemaker noted to the left anterior chest wall. ABDOMEN: Soft. Bowel sounds are present. No masses. No tenderness. EXTREMITIES: No bilateral pedal edema. No calf tenderness. Dorsalis pedis +1 bilaterally. NEUROLOGICAL: Patient is awake, alert and oriented x3. Cranial nerves 2 through 12 are grossly intact. - Labs CBC & Chem 7: 03/26/16 04:33 03/26/16 04:33 Labs: Abnormal Lab Results - Last 24 Hours (Table) 03/23/16 03/26/16 03/26/16 Range/Units 17:18 04:33 04:33 WBC 2.7 L (3.8-10.6) k/uL RBC 3.22 L (4.30-5.90) m/uL Hgb 9.5 L (13.0-17.5) gm/dL Hct 31.2 L (39.0-53.0) % MCHC 30.4 L (31.0-37.0) g/dL RDW 15.8 H (11.5-15.5) % Plt Count 91 L (150-450) k/uL Lymphocytes # (Manual) 0.7 L (1.0-4.8) k/uL Sodium 136 L (137-145) mmol/L Potassium 5.3 H (3.5-5.1) mmol/L Carbon Dioxide 20 L (22-30) mmol/L BUN 31 H (9-20) mg/dL Creatinine 2.18 H (0.66-1.25) mg/dL Phosphorus 4.7 H (2.5-4.5) mg/dL AST 99 H (17-59) U/L ALT 105 H (21-72) U/L Total Protein 5.9 L (6.3-8.2) g/dL Albumin 3.2 L (3.5-5.0) g/dL RBC Folate 1,139 H (280 - 791) ng/mL Assessment and Plan Plan: 1. Acute on chronic systolic heart failure in a patient with history of ischemic cardiomyopathy. Continue Lasix 40 mg oral every 12 hours. PRETTY and daily weights. Cardiology consult. Echocardiogram as above. 2. Nonsustained V tach due to electrolyte abnormalities with hypomagnesemia and hypokalemia status post replacement in the emergency center. Continue replacement. Cardiology consult. Patient may need defibrillator interrogated. Oral amiodarone. Toprol-XL 50 mg twice daily. 3. Pancytopenia of unclear etiology. Haptoglobin, folate,iron panel, ferritin, GGT, LDH, vitamin B12 ordered. 4. History of coronary artery disease status post 1 vessel CABG and aortic valve disease status post aortic valve replacement. Continue Toprol-XL 50 mg twice daily, aspirin 81 mg daily, Pravachol 20 mg Friday through Friday. 5. Hypertension, hypertensive cardio vascular disease with left ventricular hypertrophy. Continue Toprol-XL 50 mg twice daily, losartan 50 mg at bedtime ( hold). 6. Hyperlipidemia. Continue Pravachol 40 mg Friday through Friday. 7. Hypothyroidism with TSH less than 0.015. Levothyroxine on hold patient was on 75 g daily. Resume levothyroxine at 50 g daily. 8. Benign prostatic hypertrophy. Continue Terazosin 10 mg at bedtime. 9. Gout. Hold allopurinol 300 mg at bedtime. 10. Vitamin D deficiency. Continue supplementation. 11. Acute kidney injury. Renal ultrasound as above. Avoid nephrotoxic agents and hypotensive episodes. Lasix was resumed at 40 mg twice daily. Potassium on hold. 12. DVT prophylaxis. ROGELIO hose. No heparin due to thrombocytopenia. 13. Gastrointestinal prophylaxis. Protonix daily. Code status: DNR Discharge plan: To be determined. PT and OT requested Impression and plan of care have been directed as dictated by the signing physician. Jessie Morales nurse practitioner acting as scribe for signing physician. Time with Patient: Greater than 30
[2016-03-26] MEDS: FUROSEMIDE 40 MG TAB PO SCH (16:02)
[2016-03-26] MEDS: PANTOPRAZOLE 40 MG TABLET PO SCH (17:28)
[2016-03-26] MEDS: ASPIRIN 81 MG CHEW PO SCH (21:19)
[2016-03-26] MEDS: PRAVASTATIN SODIUM 20 MG TAB PO SCH (21:20)
[2016-03-26] MEDS: TERAZOSIN 5 MG CAP PO SCH (21:20)
[2016-03-26] MEDS: FINASTERIDE 5 MG TAB PO SCH (21:20)
[2016-03-26] MEDS: ZOLPIDEM 10 MG TAB PO PRN (21:26)
[2016-03-27 04:15] LABS: Basophils % (A) 0 %; CH 28.7; CHCM 29.8; Eosinophils % (A) 0 %; HCT 29.4 % (39.0-53.0); HDW 3.63; HGB 8.6 gm/dL (13.0-17.5); Hypochromasia Marked; Luc # (Auto) 0.08; Luc % (Auto) 3; Lymphocytes # (A) 0.3 k/uL (1.0-4.8); Lymphocytes % (A) 13 %; MCH 28.4 pg (25.0-35.0); MCHC 29.3 g/dL (31.0-37.0); MCV 97.2 fL (80.0-100.0); Macrocytosis Slight; Mean Platelet Volume 8.2; Monocytes # (A) 0.3 k/uL (0-1.0); Monocytes % (A) 10 %; Neutrophils # (A) 1.9 k/uL (1.3-7.7); Neutrophils % (A) 74 %; Poikilocytosis Slight; RBC 3.02 m/uL (4.30-5.90); WBC 2.6 k/uL (3.8-10.6); WBC (Perox) 2.91
[2016-03-27 04:26] LABS: Calcium 8.5 mg/dL (8.4-10.2); Magnesium 2.1 mg/dL (1.6-2.3); Phosphorous 3.7 mg/dL (2.5-4.5); Potassium 4.5 mmol/L (3.5-5.1); Total Protein 5.6 g/dL (6.3-8.2)
[2016-03-27] MEDS: LEVOTHYROXINE 50 MCG TAB PO SCH (06:29)
--- NOTE | 2016-03-27 07:15 | XR ---
EXAMINATION TYPE: XR chest 1V DATE OF EXAM: 03/27/2016 7:09 AM COMPARISON: Prior chest x-ray 26 March 2016 HISTORY: Congestive heart failure TECHNIQUE: Single frontal view of the chest is obtained. FINDINGS: Similar findings. The interstitium is increased. Interval improvement in visualization of the right hemidiaphragm. The cardiac defibrillator leads are stable, patient is post median sternotom y. No pneumothorax or pleural effusion evident. Cardiomediastinal silhouette, pulmonary vascularity a nd monster are stable. IMPRESSION: Correlate for pulmonary venous hypertension and interstitial edema. There may be some im provement in volume status.
[2016-03-27] MEDS: AMIODARONE 200 MG TAB PO SCH ×2 (08:07→20:45)
[2016-03-27] MEDS: FUROSEMIDE 40 MG TAB PO SCH ×2 (08:08→16:07)
[2016-03-27] MEDS: MORPHINE ORAL SOLN 10 MG/5 ML CUP PO SCH ×3 (08:21→17:12)
--- NOTE | 2016-03-27 09:35 | P.PN ---
Subjective Principal diagnosis: Cardiac arrhythmia This is a pleasant 85-year-old gentleman who sees Dr. Magaña as an outpatient with a past medical history significant for coronary artery disease and prior bypass, aortic valve replacement, severity ischemic cardiomyopathy and status post AICD, as well as multiple comorbid conditions was brought to the hospital by his daughter because he was not feeling well. The patient symptoms started about 6 weeks ago where he started experiencing intermittent episodes of warm feeling in the face and the neck associated with dizziness and lightheadedness and shortness of breath. He feels that he almost passing out but he did not pass out. He did not have any symptoms of chest pain or chest discomfort. Over the last few days he has been experiencing progressive exertional dyspnea and also bilateral lower extremities edema. Upon presentation to the hospital the patient was admitted initially to the selective units. He was experiencing intermittent episodes of nonsustained ventricular tachycardia but the patient potassium and magnesium were low and both where replaced. Subsequently he was transferred into the intensive care unit where he was started on amiodarone IV, lidocaine IV, and Lasix IV. On follow-up with him today, the patient seems to be doing better. He is not experiencing any more episodes of nonsustained VT. the bradycardia has improved after we backed up the dose of beta viktoriya. He is on amiodarone at 400 mg by mouth twice a day and will continue that. The patient can be transferred to selective floor. Objective - Vital Signs Vital signs: Vital Signs Temp 98.0 F 03/27/16 08:00 Pulse 70 03/27/16 08:00 Resp 20 03/27/16 08:00 BP 104/59 03/27/16 08:00 Pulse Ox 98 03/27/16 04:00 Intake & Output 03/26/16 03/27/16 03/27/16 18:59 06:59 18:59 Intake Total 180 100 120 Output Total 595 700 325 Balance -415 -600 -205 Weight 76.2 kg Intake: IV 20 0.9 KVO 20 Intake, IV Titration 160 100 120 Amount Sodium Chloride 0.9% 1, 160 100 120 000 ml @ 20 mls/hr IV . Q24H [facility] Rx#:[id number] Output: Urine 595 700 325 Other: Voiding Method Indwelling Catheter Indwelling Catheter Indwelling Catheter - Constitutional General appearance: Present: no acute distress - Respiratory Respiratory: bilateral: CTA - Cardiovascular Rhythm: regular Heart sounds: normal: S1, S2 - Labs CBC & Chem 7: 03/27/16 03:43 03/27/16 03:43 Labs: Abnormal Lab Results - Last 24 Hours (Table) 03/27/16 03/27/16 Range/Units 03:43 03:43 WBC 2.6 L (3.8-10.6) k/uL RBC 3.02 L (4.30-5.90) m/uL Hgb 8.6 L (13.0-17.5) gm/dL Hct 29.4 L (39.0-53.0) % MCHC 29.3 L (31.0-37.0) g/dL RDW 16.0 H (11.5-15.5) % Plt Count 86 L (150-450) k/uL Lymphocytes # 0.3 L (1.0-4.8) k/uL Chloride 109 H (98-107) mmol/L Carbon Dioxide 20 L (22-30) mmol/L BUN 28 H (9-20) mg/dL Creatinine 1.49 H (0.66-1.25) mg/dL ALT 81 H (21-72) U/L Total Protein 5.6 L (6.3-8.2) g/dL Albumin 2.9 L (3.5-5.0) g/dL Assessment and Plan Plan: Assessment #1 intermittent episodes of nonsustained VT #2 severe cardiomyopathy #3 status post AICD #4 multiple comorbid conditions Plan #1 continue the dose of metoprolol to 50 mg by mouth twice a day #2 continue amiodarone by mouth #3 monitor the kidney function and electrolytes #4 follow-up with the patient and the patient can be transferred to the floor.
--- NOTE | 2016-03-27 10:13 | P.PN ---
Subjective This is a pleasant 85-year-old gentleman who sees Dr. Magaña as an outpatient with a past medical history significant for coronary artery disease and prior bypass, aortic valve replacement, severity ischemic cardiomyopathy and status post AICD, as well as multiple comorbid conditions was brought to the hospital by his daughter because he was not feeling well. The patient symptoms started about 6 weeks ago where he started experiencing intermittent episodes of warm feeling in the face and the neck associated with dizziness and lightheadedness and shortness of breath. He feels that he almost passing out but he did not pass out. He did not have any symptoms of chest pain or chest discomfort. Over the last few days he has been experiencing progressive exertional dyspnea and also bilateral lower extremities edema. Upon presentation to the hospital the patient was admitted initially to the selective units. He was experiencing intermittent episodes of nonsustained ventricular tachycardia but the patient potassium and magnesium were low and both where replaced. Subsequently he was transferred into the intensive care unit where he was started on amiodarone IV, lidocaine IV, and Lasix IV. On 03/25/2016, the patient is being seen in follow-up. The patient is still short of breath. He remains free of any chest pain. The cardiac rhythm is paced ventricularly and the patient is running a lower blood pressure with a systolic blood pressure in the mid 80s. He has developed an acute kidney injury in the creatinine is up to 2. His urine output is marginal and his low. No fever. No chills. No sweats. No chest pain. His chest x-ray from this morning shows pulmonary vessel congestion and scattered pulmonary infiltrates and small better pleural effusion and cardiomegaly consistent with CHF. He remains on a amiodarone drip and lidocaine drip On 03/26/2016 the patient is being seen in follow-up. He remains short of breath with limited amount of activity and even at rest. His chest x-ray still showing cardiomegaly with mild small pleural effusions in the lung bases and mild pulmonary vascular congestion. He is free of any chest pain. His cardiac rhythm is still paced and the patient has not had any episodes of V. tach. Lidocaine was discontinued. He is currently on a oral maintenance amiodarone at a dose of 400 mg by mouth twice a day. Renal function remains impaired with a creatinine of 2.1. Nevertheless he is producing urine output in the order of 30-50 mL an hour. No major it right in disturbances at this point. No fever. No chills. No other complaints otherwise. Cardiology is on the case. I had stopped his Lasix yesterday and I'm in the process of restarting the diuretics. On 03/27/2016, the patient is being seen in follow-up. The patient is hemodynamically stable. No cardiac arrhythmias has been noted. No episodes of further V. tach. He remains on high dose amiodarone 400 mg by mouth twice a day. He is also on Lopressor 50 mg by mouth twice a day. His current dose as outlined the patient's heart rate has been in the low 50s. No hypotension. No drop in his urine output. Lasix was restarted yesterday the dose of 40 mg by mouth twice a day. His chest x-ray showing cardiomegaly without overt signs of failure at this point. No cough. No sputum production. No chest tightness. No wheezing. No major swelling lower extremities. No other significant events over the past 24 hours. Objective - Vital Signs Vital signs: Vital Signs Temp 98.0 F 03/27/16 08:00 Pulse 59 L 03/27/16 10:04 Resp 20 03/27/16 10:04 BP 96/50 03/27/16 10:04 Pulse Ox 97 03/27/16 09:35 Intake & Output 03/26/16 03/27/16 03/27/16 18:59 06:59 18:59 Intake Total 180 100 120 Output Total 595 700 325 Balance -415 -600 -205 Weight 76.2 kg Intake: IV 20 0.9 KVO 20 Intake, IV Titration 160 100 120 Amount Sodium Chloride 0.9% 1, 160 100 120 000 ml @ 20 mls/hr IV . Q24H [facility] Rx#:[id number] Output: Urine 595 700 325 Other: Voiding Method Indwelling Catheter Indwelling Catheter Indwelling Catheter - Exam Gen: This is an 85-year-old male. He is resting on a stretcher and appears to be in no acute distress. HEENT: Head is atraumatic, normocephalic. Pupils equal, round. Sclerae is anicteric. Conjunctiva pink. Mucous membranes of the mouth are slightly dry. NECK: Supple. No JVD. No lymphadenopathy. No thyromegaly. LUNGS: Slightly diminished but otherwise clear to auscultation. No wheezes. No chest wall tenderness. No intercostal retractions. HEART: Regular rate and rhythm. Systolic ejection murmur 2/6 at the left sternal border. Pacemaker noted to the left anterior chest wall. ABDOMEN: Soft. Bowel sounds are present. No masses. No tenderness. EXTREMITIES: No bilateral pedal edema. No calf tenderness. Dorsalis pedis +1 bilaterally. NEUROLOGICAL: Patient is awake, alert and oriented x3. Cranial nerves 2 through 12 are grossly intact. - Labs CBC & Chem 7: 03/27/16 03:43 03/27/16 03:43 Labs: Abnormal Lab Results - Last 24 Hours (Table) 03/27/16 03/27/16 Range/Units 03:43 03:43 WBC 2.6 L (3.8-10.6) k/uL RBC 3.02 L (4.30-5.90) m/uL Hgb 8.6 L (13.0-17.5) gm/dL Hct 29.4 L (39.0-53.0) % MCHC 29.3 L (31.0-37.0) g/dL RDW 16.0 H (11.5-15.5) % Plt Count 86 L (150-450) k/uL Lymphocytes # 0.3 L (1.0-4.8) k/uL Chloride 109 H (98-107) mmol/L Carbon Dioxide 20 L (22-30) mmol/L BUN 28 H (9-20) mg/dL Creatinine 1.49 H (0.66-1.25) mg/dL ALT 81 H (21-72) U/L Total Protein 5.6 L (6.3-8.2) g/dL Albumin 2.9 L (3.5-5.0) g/dL Assessment and Plan Plan: Assessment #1 nonsustained VT the patient has an AICD in place, currently on oral amiodarone 400 mg by mouth twice a day and of the IV lidocaine. Cardiac rhythm is paced without any significant arrhythmias. The patient has On 03/27/2016, the patient remains free of any ventricular arrhythmias. His current rhythm is still paced although slightly bradycardic. He remains on a high-dose amiodarone 400 mg by mouth twice a day in addition to metoprolol 50 mg by mouth twice a day. #2 electrolytes imbalance with hypokalemia and hypomagnesemia, recovered #3 severe congestive heart failure exacerbation secondary to systolic dysfunction him a echocardiogram was completed yesterday showed severe dilated myopathy with ejection fraction of less than 20% and moderate degree of pulmonary hypertension with an estimated PA pressure of 50 and moderate concentric left ventricular hypertrophy. The left atrium is severely dilated #4 severe underlying CAD with prior CABG #5 severe ischemic cardiomyopathy #6 status post mitral valve replacement #7 hypertension #8 acute kidney injury, likely due to a combination of cardiorenal factors and hypotension. The patient's urine output has improved and the patient's renal function is improving and creatinine is down to 1.4 #9 normocytic anemia, hemoglobin is stable for now #10 DNR/DNI CODE STATUS Plan Continue the current treatment. Patient came moved out of the intensive care unit.
[2016-03-27] MEDS: METOPROLOL SUCCINATE (ER) 50 MG TAB.ER.24H PO SCH ×2 (10:32→20:46)
--- NOTE | 2016-03-27 11:50 | P.PN ---
Subjective This is an 85-year-old male. His primary care physician is Dr. Brayan An and his skiing teacher is Dr. Magaña. 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 He also has history of bowel obstruction and peritonitis status post bowel resection with chronic diarrhea and is on MS to slow diarrhea. He gives history that since he started having episodes where he was weak and flushed and maybe was going to pass out but did not. He has also had shortness of breathand a warm sensation that was coming of his body from his feet. He states his defibrillator did not go off.. He last saw Dr. Brayan An on Friday and his Lasix 40 mg daily was increased frequency to twice daily. He thought it did a little bit of help for him but only a little. His daughter came to be with the patient and his and she thought he was significantly short of breath and brought him into [facility] emergency center this morning. His chest x-ray showed chronic parenchymal or emphysematous changes with congestive heart failure exacerbation and cardiomegaly. Abdominal x-rays showed nonobstructive bowel gas pattern. BNP 8410, magnesium 1.7, potassium 3.1. White count was 3.4, hemoglobin 9.9 and platelet count 95. Troponin 0.012. Initial blood pressure was 128/92. Patient has received potassium and magnesium replacement and Lasix 40 mg IV push with improvement of his symptoms of shortness of breath. He also received a DuoNeb treatment. Patient is now being admitted to the selective care unit and cardiology consult requested. 03/24: patient continued to have episodes of ventricular tachycardia and has been transferred to the intensive care unit and started on lidocaine drip and amiodarone drip. Patient states he is feeling much better today. he is having less frequent runs of V. tach. CODE STATUS has been changed to DO NOT RESUSCITATE. 03/25: Patient remains in the intensive care unit. He is on amiodarone and lidocaine drips. He does have some shortness of breath with activity. He is found sitting up in a chair. Temperature has been running low but patient has been asymptomatic. Anticipate AICD/pacemaker will be interrogated and that amiodarone will be switched to oral. Heart rate 49. Echocardiogram reveals mild aortic valve sclerosis, mild tricuspid regurgitation, moderate pulmonary hypertension, moderate concentric left ventricular hypertrophy, EF less than 20 % with global hypokinesia. Right ventricle is severely enlarged and LA severely dilated greater than 40. Urine output is marginal and Lasix discontinued. BUN 21 and creatinine 2.16. Renal ultrasound shows left-sided nephrolithiasis without bruce hydronephrosis. Lobulated appearance of the left kidney. Probable dromedary hump however solid lesion is difficult to exclude. White count is now at 4.5, hemoglobin 9.3, platelet count 71. 03/26: Patient has been cleared by pulmonary medicine and cardiology for transfer to [facility]. Patient continues to have significant shortness of breath with minimal activity and generalized weakness. Potassium placed on hold this morning for elevated level. Metoprolol was decreased to 50 mg twice daily which was decreased due to bradycardia and he is now on amiodarone by mouth. Off lidocaine drip. 03/27: Amiodarone is 400 mg twice daily and Lopressor 50 mg twice daily Church catheter remains in place due to urinary retention. Patient complains of feeling tired but denies any chest pain or shortness of breath. Kidney function is improved with BUN 28 creatinine 1.49. Potassium 4.5 and replacement on hold. Objective - Vital Signs Vital signs: Vital Signs Temp 98.0 F 03/27/16 08:00 Pulse 70 03/27/16 08:00 Resp 20 03/27/16 08:00 BP 104/59 03/27/16 08:00 Pulse Ox 98 03/27/16 04:00 Intake & Output 03/26/16 03/27/16 03/27/16 18:59 06:59 18:59 Intake Total 180 100 100 Output Total 595 700 125 Balance -415 -600 -25 Weight 76.2 kg Intake: IV 20 0.9 KVO 20 Intake, IV Titration 160 100 100 Amount Sodium Chloride 0.9% 1, 160 100 100 000 ml @ 20 mls/hr IV . [facility] Rx#:[id number] Output: Urine 595 700 125 Other: Voiding Method Indwelling Catheter Indwelling Catheter - Exam Gen: This is an 85-year-old male. He is resting on a stretcher and appears to be in no acute distress. HEENT: Head is atraumatic, normocephalic. Pupils equal, round. Sclerae is anicteric. Conjunctiva pink. Mucous membranes of the mouth are slightly dry. NECK: Supple. No JVD. No lymphadenopathy. No thyromegaly. LUNGS: Slightly diminished but otherwise clear to auscultation. No wheezes. No chest wall tenderness. No intercostal retractions. HEART: Regular rate and rhythm. Systolic ejection murmur 2/6 at the left sternal border. Pacemaker noted to the left anterior chest wall. ABDOMEN: Soft. Bowel sounds are present. No masses. No tenderness. EXTREMITIES: No bilateral pedal edema. No calf tenderness. Dorsalis pedis +1 bilaterally. NEUROLOGICAL: Patient is awake, alert and oriented x3. Cranial nerves 2 through 12 are grossly intact. - Labs CBC & Chem 7: 03/27/16 03:43 03/27/16 03:43 Labs: Abnormal Lab Results - Last 24 Hours (Table) 03/27/16 03/27/16 Range/Units 03:43 03:43 WBC 2.6 L (3.8-10.6) k/uL RBC 3.02 L (4.30-5.90) m/uL Hgb 8.6 L (13.0-17.5) gm/dL Hct 29.4 L (39.0-53.0) % MCHC 29.3 L (31.0-37.0) g/dL RDW 16.0 H (11.5-15.5) % Plt Count 86 L (150-450) k/uL Lymphocytes # 0.3 L (1.0-4.8) k/uL Chloride 109 H (98-107) mmol/L Carbon Dioxide 20 L (22-30) mmol/L BUN 28 H (9-20) mg/dL Creatinine 1.49 H (0.66-1.25) mg/dL ALT 81 H (21-72) U/L Total Protein 5.6 L (6.3-8.2) g/dL Albumin 2.9 L (3.5-5.0) g/dL Assessment and Plan Plan: 1. Acute on chronic systolic heart failure in a patient with history of ischemic cardiomyopathy. Continue Lasix 40 mg oral every 12 hours. PRETTY and daily weights. Cardiology consult. Echocardiogram as above. 2. Nonsustained V tach due to electrolyte abnormalities with hypomagnesemia and hypokalemia status post replacement in the emergency center. Continue replacement. Cardiology consult. Patient may need defibrillator interrogated. Oral amiodarone 400 mg twice daily. Toprol-XL 50 mg twice daily. 3. Pancytopenia of unclear etiology. Haptoglobin, folate,iron panel, ferritin, GGT, LDH, vitamin B12 ordered. 4. History of coronary artery disease status post 1 vessel CABG and aortic valve disease status post aortic valve replacement. Continue Toprol-XL 50 mg twice daily, aspirin 81 mg daily, Pravachol 20 mg Friday through Friday. 5. Hypertension, hypertensive cardio vascular disease with left ventricular hypertrophy. Continue Toprol-XL 50 mg twice daily, losartan 50 mg at bedtime ( hold). 6. Hyperlipidemia. Continue Pravachol 40 mg Friday through Friday. 7. Hypothyroidism with TSH less than 0.015. Levothyroxine on hold patient was on 75 g daily. Resume levothyroxine at 50 g daily. 8. Benign prostatic hypertrophy. Continue Terazosin 10 mg at bedtime. 9. Gout. Hold allopurinol 300 mg at bedtime. 10. Vitamin D deficiency. Continue supplementation. 11. Acute kidney injury. Renal ultrasound as above. Avoid nephrotoxic agents and hypotensive episodes. Lasix was resumed at 40 mg twice daily. Potassium on hold until tomorrow. 12. DVT prophylaxis. ROGELIO hose. No heparin due to thrombocytopenia. 13. Gastrointestinal prophylaxis. Protonix daily. 14. Urinary retention. Maintain Church catheter another day. Code status: DNR Discharge plan: To be determined. PT and OT requested Impression and plan of care have been directed as dictated by the signing physician. Jessie Morales nurse practitioner acting as scribe for signing physician. Time with Patient: Greater than 30
[2016-03-27] MEDS: CHOLECALCIFEROL 1,000 UNIT TAB PO SCH (12:38)
[2016-03-27] MEDS: SODIUM CHLORIDE 0.9% 1,000 ML IV SCH (15:59)
[2016-03-27] MEDS: METOPROLOL SUCCINATE (ER) 25 MG TAB.ER.24H PO SCH (16:00)
[2016-03-27] MEDS: PANTOPRAZOLE 40 MG TABLET PO SCH (17:12)
[2016-03-27] MEDS: FINASTERIDE 5 MG TAB PO SCH (20:46)
[2016-03-27] MEDS: PRAVASTATIN SODIUM 20 MG TAB PO SCH (20:46)
[2016-03-27] MEDS: TERAZOSIN 5 MG CAP PO SCH (20:46)
[2016-03-27] MEDS: ASPIRIN 81 MG CHEW PO SCH (20:46)
[2016-03-28 05:56] LABS: Anisocytosis Slight; Basophils % (A) 0 %; CH 28.7; CHCM 30.1; Eosinophils % (A) 0 %; HCT 29.9 % (39.0-53.0); HDW 3.72; HGB 8.8 gm/dL (13.0-17.5); Hypochromasia Marked; Luc # (Auto) 0.13; Luc % (Auto) 4; Lymphocytes # (A) 0.4 k/uL (1.0-4.8); Lymphocytes % (A) 12 %; MCH 28.2 pg (25.0-35.0); MCHC 29.3 g/dL (31.0-37.0); Mean Platelet Volume 8.5; Monocytes # (A) 0.3 k/uL (0-1.0); Monocytes % (A) 10 %; Neutrophils # (A) 2.7 k/uL (1.3-7.7); Neutrophils % (A) 75 %; Poikilocytosis Slight; RBC 3.12 m/uL (4.30-5.90); RDW 16.1 % (11.5-15.5); WBC 3.6 k/uL (3.8-10.6); WBC (Perox) 3.43
[2016-03-28 06:19] LABS: AST 33 U/L (17-59); Alkaline Phosphatase 91 U/L (38-126); Anion Gap 10 mmol/L; Blood Urea Nitrogen 21 mg/dL (9-20); Calcium 8.5 mg/dL (8.4-10.2); Carbon Dioxide 24 mmol/L (22-30); Chloride 107 mmol/L (98-107); Glucose 90 mg/dL (74-99); Magnesium 1.9 mg/dL (1.6-2.3); Non-African American GFR(MDRD) >60 (>60 ml/min/1.73 sqM); Phosphorous 3.2 mg/dL (2.5-4.5); Potassium 3.9 mmol/L (3.5-5.1); Sodium 141 mmol/L (137-145); Total Bilirubin 1.3 mg/dL (0.2-1.3); Total Protein 6.1 g/dL (6.3-8.2)
[2016-03-28 06:26] LABS: ALT 76 U/L (21-72)
[2016-03-28] MEDS: LEVOTHYROXINE 50 MCG TAB PO SCH (06:28)
[2016-03-28] MEDS: MORPHINE ORAL SOLN 10 MG/5 ML CUP PO SCH ×2 (06:34→11:54)
[2016-03-28] MEDS: FUROSEMIDE 40 MG TAB PO SCH (09:13)
[2016-03-28] MEDS: METOPROLOL SUCCINATE (ER) 50 MG TAB.ER.24H PO SCH (09:13)
[2016-03-28] MEDS: AMIODARONE 200 MG TAB PO SCH (09:13)
[2016-03-28] MEDS: CHOLECALCIFEROL 1,000 UNIT TAB PO SCH (11:55)
[2016-03-28 11:58] VITALS: BP 97/45; PULSE 69; RESP 18; TEMP 97
[2016-03-28] MEDS: SODIUM CHLORIDE 0.9% 1,000 ML IV SCH (12:48)
--- NOTE | 2016-03-28 14:01 | P.PN ---
Subjective Principal diagnosis: CHF This is a pleasant 85-year-old gentleman who follows regularly with Dr. Magaña in the office. He has past medical history significant for coronary artery disease with prior bypass surgery, history of aortic valve replacement, ischemic cardiomyopathy with prior AICD implantation, hypertension, hyperlipidemia. He presented to the hospital in general with symptoms of not feeling well. He had some associated dizziness and lightheadedness with mild shortness of breath. Patient also was experiencing near syncopal spells with no overt syncope. He was noted here to have episodes of nonsustained ventricular tachycardia, potassium and magnesium level were low in the remote both replaced. On follow-up with the patient today, he is having occasional PVCs brief run of nonsustained ventricular tachycardia of 4 beats. Continues to be on amiodarone at reduced dose of beta viktoriya. Overall the patient feels very well today, is eager to be discharged home. Objective - Vital Signs Vital signs: Vital Signs Temp 97.0 F L 03/28/16 11:57 Pulse 69 03/28/16 12:00 Resp 18 03/28/16 12:00 BP 97/45 03/28/16 11:57 Pulse Ox 95 03/28/16 11:57 Intake & Output 03/27/16 03/28/16 03/28/16 18:59 06:59 18:59 Intake Total 360 380 600 Output Total 677 1999 851 Balance -600 -2186 -438 Weight 70.3 kg Intake: IV 20 0.9% NS FLUSH 20 Intake, IV Titration 180 Amount Sodium Chloride 0.9% 1, 180 000 ml @ 20 mls/hr IV . [facility] Rx#:[id number] Oral 180 360 600 Output: Urine 675 1999 850 Stool 2 1 Other: Voiding Method Indwelling Catheter Indwelling Catheter Urinal # Bowel Movements 1 - Exam PHYSICAL EXAMINATION: HEENT: Head is atraumatic, normocephalic. Pupils equal, round. Neck is supple. There is no elevated jugular venous pressure. HEART EXAMINATION: Heart S1, S2 normal. No murmur or gallop heard. CHEST EXAMINATION: Lungs are clear to auscultation and precussion. No chest wall tenderness is noted on palpation or with deep breathing. ABDOMEN: Soft, nontender. Bowel sounds are heard. No organomegaly noted. EXTREMITIES: 2+ peripheral pulses with no evidence of peripheral edema and no calf tenderness noted. NEUROLOGIC patient is awake, alert and oriented -3. . - Labs CBC & Chem 7: 03/28/16 05:28 03/28/16 05:28 Labs: Abnormal Lab Results - Last 24 Hours (Table) 03/28/16 03/28/16 Range/Units 05:28 05:28 WBC 3.6 L (3.8-10.6) k/uL RBC 3.12 L (4.30-5.90) m/uL Hgb 8.8 L (13.0-17.5) gm/dL Hct 29.9 L (39.0-53.0) % MCHC 29.3 L (31.0-37.0) g/dL RDW 16.1 H (11.5-15.5) % Plt Count 97 L (150-450) k/uL Lymphocytes # 0.4 L (1.0-4.8) k/uL BUN 21 H (9-20) mg/dL ALT 76 H (21-72) U/L Total Protein 6.1 L (6.3-8.2) g/dL Albumin 3.1 L (3.5-5.0) g/dL Assessment and Plan (1) Systolic CHF, acute on chronic Status: Acute (2) NSVT (nonsustained ventricular tachycardia) Status: Acute (3) Pancytopenia Status: Acute (4) CAD (coronary artery disease) Status: Acute (5) Hx of CABG Status: Acute (6) S/P AVR Status: Acute (7) HTN (hypertension) Status: Acute (8) Hyperlipemia Status: Acute (9) AICD (automatic cardioverter/defibrillator) present Status: Acute (10) BPH (benign prostatic hyperplasia) Status: Acute (11) Hypothyroidism Status: Acute Plan: From cardiology's perspective, patient may be able to be discharged home today. We'll make him a follow-up appointment with Dr. Magaña in the office post discharge. He will continue on amiodarone 400 mg one tablet by mouth twice a day for one week, then 200 mg one tablet by mouth 3 times a day for one week, then 200 mg twice a day. We will also continue his current dose of beta viktoriya. DNP note has been reviewed, I agree with a documented findings and plan of care. Patient was seen and examined.
--- NOTE | 2016-03-28 18:36 | P.PN ---
Subjective This is a pleasant 85-year-old gentleman who sees Dr. Magaña as an outpatient with a past medical history significant for coronary artery disease and prior bypass, aortic valve replacement, severity ischemic cardiomyopathy and status post AICD, as well as multiple comorbid conditions was brought to the hospital by his daughter because he was not feeling well. The patient symptoms started about 6 weeks ago where he started experiencing intermittent episodes of warm feeling in the face and the neck associated with dizziness and lightheadedness and shortness of breath. He feels that he almost passing out but he did not pass out. He did not have any symptoms of chest pain or chest discomfort. Over the last few days he has been experiencing progressive exertional dyspnea and also bilateral lower extremities edema. Upon presentation to the hospital the patient was admitted initially to the selective units. He was experiencing intermittent episodes of nonsustained ventricular tachycardia but the patient potassium and magnesium were low and both where replaced. Subsequently he was transferred into the intensive care unit where he was started on amiodarone IV, lidocaine IV, and Lasix IV. On 03/25/2016, the patient is being seen in follow-up. The patient is still short of breath. He remains free of any chest pain. The cardiac rhythm is paced ventricularly and the patient is running a lower blood pressure with a systolic blood pressure in the mid 80s. He has developed an acute kidney injury in the creatinine is up to 2. His urine output is marginal and his low. No fever. No chills. No sweats. No chest pain. His chest x-ray from this morning shows pulmonary vessel congestion and scattered pulmonary infiltrates and small better pleural effusion and cardiomegaly consistent with CHF. He remains on a amiodarone drip and lidocaine drip On 03/26/2016 the patient is being seen in follow-up. He remains short of breath with limited amount of activity and even at rest. His chest x-ray still showing cardiomegaly with mild small pleural effusions in the lung bases and mild pulmonary vascular congestion. He is free of any chest pain. His cardiac rhythm is still paced and the patient has not had any episodes of V. tach. Lidocaine was discontinued. He is currently on a oral maintenance amiodarone at a dose of 400 mg by mouth twice a day. Renal function remains impaired with a creatinine of 2.1. Nevertheless he is producing urine output in the order of 30-50 mL an hour. No major it right in disturbances at this point. No fever. No chills. No other complaints otherwise. Cardiology is on the case. I had stopped his Lasix yesterday and I'm in the process of restarting the diuretics. On 03/27/2016, the patient is being seen in follow-up. The patient is hemodynamically stable. No cardiac arrhythmias has been noted. No episodes of further V. tach. He remains on high dose amiodarone 400 mg by mouth twice a day. He is also on Lopressor 50 mg by mouth twice a day. His current dose as outlined the patient's heart rate has been in the low 50s. No hypotension. No drop in his urine output. Lasix was restarted yesterday the dose of 40 mg by mouth twice a day. His chest x-ray showing cardiomegaly without overt signs of failure at this point. No cough. No sputum production. No chest tightness. No wheezing. No major swelling lower extremities. No other significant events over the past 24 hours. On 03/28/2016 the patient is being seen in follow-up on the telemetry unit. He is doing extremely well. The kidney Function is completely normalized. No chest pain. No shortness of breath. No cardiac arrhythmias. Discharge planning is in progress and the patient would potentially discharge today. Objective - Vital Signs Vital signs: Vital Signs Temp 97.0 F L 03/28/16 11:57 Pulse 69 03/28/16 12:00 Resp 18 03/28/16 12:00 BP 97/45 03/28/16 11:57 Pulse Ox 95 03/28/16 11:57 Intake & Output 03/27/16 03/28/16 03/28/16 18:59 06:59 18:59 Intake Total 360 380 600 Output Total 677 2000 851 Balance -317 -1620 -251 Weight 70.3 kg Intake: IV 20 0.9% NS FLUSH 20 Intake, IV Titration 180 Amount Sodium Chloride 0.9% 1, 180 000 ml @ 20 mls/hr IV . Q24H [facility] Rx#:[id number] Oral 180 360 600 Output: Urine 675 2000 850 Stool 2 1 Other: Voiding Method Indwelling Catheter Indwelling Catheter Urinal # Bowel Movements 1 - Exam Gen: This is an 85-year-old male. He is resting on a stretcher and appears to be in no acute distress. HEENT: Head is atraumatic, normocephalic. Pupils equal, round. Sclerae is anicteric. Conjunctiva pink. Mucous membranes of the mouth are slightly dry. NECK: Supple. No JVD. No lymphadenopathy. No thyromegaly. LUNGS: Slightly diminished but otherwise clear to auscultation. No wheezes. No chest wall tenderness. No intercostal retractions. HEART: Regular rate and rhythm. Systolic ejection murmur 2/6 at the left sternal border. Pacemaker noted to the left anterior chest wall. ABDOMEN: Soft. Bowel sounds are present. No masses. No tenderness. EXTREMITIES: No bilateral pedal edema. No calf tenderness. Dorsalis pedis +1 bilaterally. NEUROLOGICAL: Patient is awake, alert and oriented x3. Cranial nerves 2 through 12 are grossly intact. - Labs CBC & Chem 7: 03/28/16 05:28 03/28/16 05:28 Labs: Abnormal Lab Results - Last 24 Hours (Table) 03/28/16 03/28/16 Range/Units 05:28 05:28 WBC 3.6 L (3.8-10.6) k/uL RBC 3.12 L (4.30-5.90) m/uL Hgb 8.8 L (13.0-17.5) gm/dL Hct 29.9 L (39.0-53.0) % MCHC 29.3 L (31.0-37.0) g/dL RDW 16.1 H (11.5-15.5) % Plt Count 97 L (150-450) k/uL Lymphocytes # 0.4 L (1.0-4.8) k/uL BUN 21 H (9-20) mg/dL ALT 76 H (21-72) U/L Total Protein 6.1 L (6.3-8.2) g/dL Albumin 3.1 L (3.5-5.0) g/dL Assessment and Plan Plan: Assessment #1 nonsustained VT the patient has an AICD in place, currently on oral amiodarone 400 mg by mouth twice a day and of the IV lidocaine. Cardiac rhythm is paced without any significant arrhythmias. The patient has On 03/27/2016, the patient remains free of any ventricular arrhythmias. His current rhythm is still paced although slightly bradycardic. He remains on a high-dose amiodarone 400 mg by mouth twice a day in addition to metoprolol 50 mg by mouth twice a day. On 03/28/2016, the patient is back to baseline. Renal function is normalized. No hypotension. No chest pain. No shortness of breath. #2 electrolytes imbalance with hypokalemia and hypomagnesemia, recovered #3 severe congestive heart failure exacerbation secondary to systolic dysfunction him a echocardiogram was completed yesterday showed severe dilated myopathy with ejection fraction of less than 20% and moderate degree of pulmonary hypertension with an estimated PA pressure of 50 and moderate concentric left ventricular hypertrophy. The left atrium is severely dilated #4 severe underlying CAD with prior CABG #5 severe ischemic cardiomyopathy #6 status post mitral valve replacement #7 hypertension #8 acute kidney injury, likely due to a combination of cardiorenal factors and hypotension. The patient's urine output has improved and the patient's renal function is improving and creatinine is normalized #9 normocytic anemia, hemoglobin is stable for now #10 DNR/DNI CODE STATUS Plan Agree on discharging this patient home. Follow-up with cardiology. Pulmonary was signed off.
--- NOTE | 2016-04-01 15:34 | P.DS ---
Providers Date of admission: 03/23/16 12:34 Expected date of discharge: 03/28/16 Attending physician: Leyla Crews Consults: 03/23/16 21:18 Consult Physician Routine Consulting Provider: Chuck Coleman Consult Reason/Comments: uncontrolled Ventricular Tachycardia Do you want consulting provider notified?: Yes Primary care physician: Brayan An [facility] [place] Course: This is an 85-year-old male. His primary care physician is Dr. Brayan An and his screw machine tender is Dr. Magaña. 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 He also has history of bowel obstruction and peritonitis status post bowel resection with chronic diarrhea and is on MS to slow diarrhea. He gives history that since he started having episodes where he was weak and flushed and maybe was going to pass out but did not. He has also had shortness of breathand a warm sensation that was coming of his body from his feet. He states his defibrillator did not go off.. He last saw Dr. Brayan An on Friday and his Lasix 40 mg daily was increased frequency to twice daily. He thought it did a little bit of help for him but only a little. His daughter came to be with the patient and his and she thought he was significantly short of breath and brought him into [facility] emergency center this morning. His chest x-ray showed chronic parenchymal or emphysematous changes with congestive heart failure exacerbation and cardiomegaly. Abdominal x-rays showed nonobstructive bowel gas pattern. BNP 8410, magnesium 1.7, potassium 3.1. White count was 3.4, hemoglobin 9.9 and platelet count 95. Troponin 0.012. Initial blood pressure was 128/92. Patient has received potassium and magnesium replacement and Lasix 40 mg IV push with improvement of his symptoms of shortness of breath. He also received a DuoNeb treatment. Patient is now being admitted to the selective care unit and cardiology consult requested. 03/24: patient continued to have episodes of ventricular tachycardia and has been transferred to the intensive care unit and started on lidocaine drip and amiodarone drip. Patient states he is feeling much better today. he is having less frequent runs of V. tach. CODE STATUS has been changed to DO NOT RESUSCITATE. 03/25: Patient remains in the intensive care unit. He is on amiodarone and lidocaine drips. He does have some shortness of breath with activity. He is found sitting up in a chair. Temperature has been running low but patient has been asymptomatic. Anticipate AICD/pacemaker will be interrogated and that amiodarone will be switched to oral. Heart rate 49. Echocardiogram reveals mild aortic valve sclerosis, mild tricuspid regurgitation, moderate pulmonary hypertension, moderate concentric left ventricular hypertrophy, EF less than 20 % with global hypokinesia. Right ventricle is severely enlarged and LA severely dilated greater than 40. Urine output is marginal and Lasix discontinued. BUN 21 and creatinine 2.16. Renal ultrasound shows left-sided nephrolithiasis without bruce hydronephrosis. Lobulated appearance of the left kidney. Probable dromedary hump however solid lesion is difficult to exclude. White count is now at 4.5, hemoglobin 9.3, platelet count 71. 03/26: Patient has been cleared by pulmonary medicine and cardiology for transfer to [facility]. Patient continues to have significant shortness of breath with minimal activity and generalized weakness. Potassium placed on hold this morning for elevated level. Metoprolol was decreased to 50 mg twice daily which was decreased due to bradycardia and he is now on amiodarone by mouth. Off lidocaine drip. 03/27: Amiodarone is 400 mg twice daily and Lopressor 50 mg twice daily Church catheter remains in place due to urinary retention. Patient complains of feeling tired but denies any chest pain or shortness of breath. Kidney function is improved with BUN 28 creatinine 1.49. Potassium 4.5 and replacement on hold. 03/28: Patient has been cleared by cardiology for discharge home today. Church catheter to be removed. Pulse ox with ambulation is 92%. Patient will not require home oxygen. Amiodarone dosing clarified with cardiology. Patient will be discharged home today in stable condition. Discharge diagnoses: 1. Acute on chronic systolic heart failure in a patient with history of ischemic cardiomyopathy. 2. Nonsustained V tach due to electrolyte abnormalities with hypomagnesemia and hypokalemia 3. Pancytopenia of unclear etiology. 4. History of coronary artery disease status post 1 vessel CABG and aortic valve disease status post aortic valve replacement. 5. Hypertension, hypertensive cardio vascular disease with left ventricular hypertrophy. 6. Hyperlipidemia. 7. Hypothyroidism 8. Benign prostatic hypertrophy 9. Gout unspecified 10. Vitamin D deficiency 11. Acute kidney injury 12. Urinary retention. Discharge plan: Home with [facility] Impression and plan of care have been directed as dictated by the signing physician. Jessie Morales nurse practitioner acting as scribe for signing physician. Patient Condition at Discharge: Stable Plan - Discharge Summary New Discharge Prescriptions: Amiodarone [Cordarone] 400 mg PO BID #60 tab Furosemide [Lasix] 40 mg PO BID@0900,1600 #60 tab Levothyroxine Sodium [Synthroid] 50 mcg PO DAILY@0630 #30 tab Discharge Medication List Allopurinol [Zyloprim] 300 mg PO HS 03/23/16 [History] Aspirin 81 mg PO HS 03/23/16 [History] Cholecalciferol [Vitamin D3] 1,000 unit PO DAILY 03/23/16 [History] Finasteride [Proscar] 5 mg PO HS 03/23/16 [History] Losartan [Cozaar] 50 mg PO HS 03/23/16 [History] Metoprolol Succinate (ER) [Toprol XL] 50 mg PO BID 03/23/16 [History] Morphine Oral Soln [Morphine Oral Soln 2 MG/ML] 3 mg PO TID 03/23/16 [History] Pravastatin Sodium [Pravachol] 20 mg PO MOTUWETHFR 03/23/16 [History] Ranitidine HCl 300 mg PO HS 03/23/16 [History] Terazosin HCl [Hytrin] 10 mg PO HS 03/23/16 [History] Zolpidem [Ambien] 10 mg PO HS PRN 03/23/16 [History] Amiodarone [Cordarone] 400 mg PO BID #60 tab 03/28/16 [Rx] Furosemide [Lasix] 40 mg PO BID@0900,1600 #60 tab 03/28/16 [Rx] Levothyroxine Sodium [Synthroid] 50 mcg PO DAILY@0630 #30 tab 03/28/16 [Rx] Follow up Appointment(s)/Referral(s): Cindy Magaña MD [STAFF PHYSICIAN] - 04/15/16 8:45 am [facility], [NON-STAFF] - Brayan An MD [Primary Care Provider] - 04/04/16 1:30 pm ([facility]# ) Patient Instructions/Handouts: Heart Failure (DC), Hypokalemia (DC) Discharge Disposition: HOME WITH HOME HEALTH SERVICES
== END 2016-03-28 14:50 | disposition home health service (06) | DRG 292 ==
LOC: EC 08:57 → 6SEL 12:34 → UNDODISIN 21:16 → 6ICU 22:44 → 6SEL 03-27 15:49
PROVIDERS: ADMIT Internal Medicine; ATTEND Internal Medicine
DX: I11.0 Hypertensive heart disease with heart failure (principal); D61.818 Other pancytopenia; I47.2 Ventricular tachycardia; N17.9 Acute kidney failure, unspecified; I27.2 Other secondary pulmonary hypertension; E83.42 Hypomagnesemia; I08.2 Rheumatic disorders of both aortic and tricuspid valves; I25.5 Ischemic cardiomyopathy; I25.10 Atherosclerotic heart disease of native coronary artery without angina pectoris; I50.23 Acute on chronic systolic (congestive) heart failure; E03.9 Hypothyroidism, unspecified; E55.9 Vitamin D deficiency, unspecified; E78.5 Hyperlipidemia, unspecified; E87.6 Hypokalemia; I25.2 Old myocardial infarction; I49.3 Ventricular premature depolarization; K21.9 Gastro-esophageal reflux disease without esophagitis; K52.9 Noninfective gastroenteritis and colitis, unspecified; M10.9 Gout, unspecified; N20.0 Calculus of kidney; N40.1 Benign prostatic hyperplasia with lower urinary tract symptoms; R33.8 Other retention of urine; Z66 Do not resuscitate; Z79.82 Long term (current) use of aspirin; Z82.49 Family history of ischemic heart disease and other diseases of the circulatory system; Z87.891 Personal history of nicotine dependence; Z95.1 Presence of aortocoronary bypass graft; Z95.3 Presence of xenogenic heart valve; Z95.810 Presence of automatic (implantable) cardiac defibrillator; Z96.1 Presence of intraocular lens
CPT/HCPCS: 36415; 71010; 71020; 74000; 76770; 80048; 80053; 82550; 82553; 82607; 82728; 82747; 82977; 83010; 83540; 83550; 83615; 83735; 83880; 84100; 84132; 84439; 84443; 84484; 85025; 85045; 85610; 85730; 93005; 93306; 94640; 96361; 96365; 96366; 96368; 96375; 99291

== ENCOUNTER 2016-11-04 05:53 | Day surgery (SDC) | payer MEDICARE, BC ==
[2016-10-29 09:14] VITALS: BMI 23.6
[2016-11-04] MEDS ORDERED: CLINDAMYCIN 900 MG in DEXTROSE 5% IN WATER 50 ML IVPB ONE ×2 (06:00)
[2016-11-04] MEDS ORDERED: CLINDAMYCIN 600 MG in SODIUM CHLORIDE 0.9% IRRIGATIO 250 ML IRRIGATION ONE (06:00)
[2016-11-04 06:51] LABS: Anisocytosis Slight; Basophils % (A) 0 %; CH 27.4; Eosinophils % (A) 0 %; HCT 29.4 % (39.0-53.0); HDW 3.45; HGB 8.9 gm/dL (13.0-17.5); Hypochromasia Moderate; Luc # (Auto) 0.14; Luc % (Auto) 4; Lymphocytes # (A) 0.7 k/uL (1.0-4.8); Lymphocytes % (A) 18 %; MCHC 30.4 g/dL (31.0-37.0); MCV 88.7 fL (80.0-100.0); Mean Platelet Volume 8.5; Monocytes # (A) 0.2 k/uL (0-1.0); Monocytes % (A) 6 %; Neutrophils # (A) 2.7 k/uL (1.3-7.7); Neutrophils % (A) 72 %; Poikilocytosis Slight; RBC 3.32 m/uL (4.30-5.90); RDW 17.4 % (11.5-15.5); WBC 3.8 k/uL (3.8-10.6)
[2016-11-04] MEDS: SODIUM CHLORIDE 0.9% 1,000 ML IV SCH (06:54)
[2016-11-04 06:59] LABS: Anion Gap 11 mmol/L; Blood Urea Nitrogen 13 mg/dL (9-20); Calcium 8.7 mg/dL (8.4-10.2); Carbon Dioxide 24 mmol/L (22-30); Chloride 105 mmol/L (98-107); Glucose 75 mg/dL (74-99); Non-African American GFR(MDRD) >60 (>60 ml/min/1.73 sqM); Potassium 3.8 mmol/L (3.5-5.1); Sodium 140 mmol/L (137-145)
[2016-11-04] MEDS ORDERED: fentaNYL (PF) 50 MCG/ML 2 ML AMP ONE (07:30)
[2016-11-04] MEDS ORDERED: MIDAZOLAM 2 MG/2 ML VIAL ONE (07:30)
[2016-11-04] MEDS ORDERED: MIDAZOLAM 2 MG/2 ML VIAL IVP ONE (07:40)
[2016-11-04] MEDS: LIDOCAINE 1% INJ 10MG/ML (20 ML MDV) SQ ONE ×2 (07:55→08:04)
[2016-11-04] MEDS ORDERED: fentaNYL (PF) 50 MCG/ML 2 ML AMP IV ONE (07:56)
[2016-11-04] MEDS ORDERED: ACETAMINOPHEN TAB 325 MG TAB PO PRN (08:43)
--- NOTE | 2016-11-04 08:43 | P.PCN ---
Preoperative Diagnosis: Patient underwent EP procedure under conscious sedation/moderate sedation, monitoring of the level of consciousness and physiologic parameters including but not limited to vital signs and oxygenation. Patient tolerated the procedure well without any acute complications. Start time: 7:51 AM Stop time: 8:31 AM Postoperative Diagnosis: Procedure(s) Performed: Implants: Indications for Procedure: Operative Findings: Description of Procedure:
[2016-11-04] MEDS ORDERED: ZOLPIDEM 10 MG TAB PO PRN (13:13)
[2016-11-04] MEDS ORDERED: PRAVASTATIN SODIUM 20 MG TAB PO SCH (14:00)
[2016-11-04] MEDS: CLINDAMYCIN 900 MG in DEXTROSE 5% IN WATER 50 ML IVPB SCH ×4 (14:18→21:18)
[2016-11-04] MEDS: HYDROcodone/APAP 10-325MG 1 EACH TAB PO PRN ×2 (14:18→20:31)
[2016-11-04] MEDS: MORPHINE ORAL SOLN 10 MG/5 ML CUP PO SCH ×2 (16:53→21:49)
--- NOTE | 2016-11-04 18:25 | PCN ---
Mr. Rivas is an 86-year-old gentleman who has severe ischemic cardiomyopathy, underlying valvular heart disease, also coronary artery bypass grafting, old inferior wall myocardial infarction, Bi-V ICD that is at [facility] [employer] [facility]. He has an underlying left bundle branch block with QRS width of 153 ms. He has Class II heart failure symptoms. He was brought in for an ICD generator change normal battery depletion. The patient was brought to the EP lab in a fasting state. Written informed consent was obtained prior to the procedure. The left shoulder area was prepped and draped as per protocol. 1% Lidocaine was used for local anesthesia. A 4 cm incision was made directly over the previous surgical site and carried down to the level of the generator. The old Medtronic generator was explanted, Medtronic [id number], serial number [id number]. The new generator was then implanted after partial capsulectomy and achieving hemostasis and the wound was closed in three layers and dressed per protocol. The new generator is a [employer] model #MR4180-28I, serial #[id number]. The atrial lead was Medtronic model number 5076, serial number [id number], P- waves 1.4 millivolts, pacing impedance 480 ohms, pacing threshold 0.75 volts at 0.5 milliseconds. The ICD lead was dual coil DF1 lead, Medtronic number 6949, serial number [id number]. R waves 12 mV, pacing impedance 450 ohms. Pacing threshold 0.75 volts at 0.5 milliseconds. The LV lead was Medtronic model number 4396, serial number [id number]. The pacing impedance 410 ohms, pacing threshold 0.75 volts at 0.5 ms. The device was then programmed to DDR 50 to 130 PPM with a short LV delay and immediate RIT programming. RESULT: Successful BI-V ICD generator change for normal battery depletion. The LVRV pacing was kept simultaneous. The paced QRS width was about 170 ms. The patient tolerated the procedure well without any acute complications. Copy to attention: [facility]
[2016-11-04] MEDS ORDERED: TERAZOSIN 5 MG CAP PO SCH (21:00)
[2016-11-04] MEDS ORDERED: ALLOPURINOL 300 MG TAB PO SCH (21:00)
[2016-11-04] MEDS ORDERED: FINASTERIDE 5 MG TAB PO SCH (21:00)
[2016-11-04] MEDS ORDERED: LOSARTAN 50 MG TAB PO SCH (21:00)
[2016-11-04] MEDS ORDERED: FAMOTIDINE 20 MG TAB PO SCH (21:00)
[2016-11-04] MEDS ORDERED: ASPIRIN 81 MG CHEW PO SCH (21:00)
[2016-11-04] MEDS: METOPROLOL SUCCINATE (ER) 50 MG TAB.ER.24H PO SCH (21:14)
[2016-11-05] MEDS: CLINDAMYCIN 900 MG in DEXTROSE 5% IN WATER 50 ML IVPB SCH ×4 (02:22→08:19)
[2016-11-05 04:39] VITALS: RESP 18
[2016-11-05] MEDS: HYDROcodone/APAP 10-325MG 1 EACH TAB PO PRN ×2 (04:59→10:55)
[2016-11-05] MEDS ORDERED: LEVOTHYROXINE 50 MCG TAB PO SCH (06:30)
[2016-11-05] MEDS: SODIUM CHLORIDE 0.9% 1,000 ML IV SCH (06:41)
[2016-11-05] MEDS: METOPROLOL SUCCINATE (ER) 50 MG TAB.ER.24H PO SCH (07:55)
[2016-11-05] MEDS: MORPHINE ORAL SOLN 10 MG/5 ML CUP PO SCH (08:19)
[2016-11-05] MEDS ORDERED: CHOLECALCIFEROL 1,000 UNIT TAB PO SCH (09:00)
[2016-11-05] MEDS ORDERED: FUROSEMIDE 40 MG TAB PO SCH (09:00)
[2016-11-05] MEDS ORDERED: AMIODARONE 100 MG TAB PO SCH (09:00)
[2016-11-05 11:48] VITALS: BP 113/62; PULSE 60; TEMP 97.4
--- NOTE | 2016-11-05 11:54 | P.DS ---
Providers Attending physician: Cheko Ling Primary care physician: [facility] Course: Patient is doing well from a cardiac standpoint. He denies any chest discomfort no undue shortness of breath he is lying comfortably in bed. Mild soreness over the ICD site but no hematoma Afebrile 97.4F, pulse rate in the 60s, normal respirations, blood pressure normal at 113/62 mmHg Heart sounds S1 and S2 are normal no murmurs or gallops Breath sounds are clear no rhonchi no crackles Abdomen is soft nontender Extremities warm no edema Impression Ischemic cardiomyopathy History of ventricular tachycardia Chronic systolic dysfunction with class II CHF Underlying left bundle branch block status post Bi V ICD generator change for a device that was at [facility] for normal battery depletion Plan Discharge home on current medications without any changes follow up in the device clinic in 5-[address] Magaña as scheduled Plan - Discharge Summary New Discharge Prescriptions: No Action Aspirin 81 mg PO HS Zolpidem [Ambien] 10 mg PO HS PRN PRN Reason: sleep Ranitidine HCl 300 mg PO HS Pravastatin Sodium [Pravachol] 20 mg PO MOTUWETHFR Finasteride [Proscar] 5 mg PO HS MORPHINE 2mg/mL PO 5mL CUP [Morphine Oral Soln 2 MG/ML] 3 mg PO TID Allopurinol [Zyloprim] 300 mg PO HS Cholecalciferol [Vitamin D3] 1,000 unit PO DAILY Terazosin HCl [Hytrin] 10 mg PO HS Metoprolol Succinate (ER) [Toprol XL] 50 mg PO BID Losartan [Cozaar] 50 mg PO HS Levothyroxine Sodium [Synthroid] 50 mcg PO DAILY@0630 #30 tab Furosemide [Lasix] 40 mg PO DAILY Amiodarone [Cordarone] 50 mg PO DAILY HYDROcodone/APAP 10-325MG [[place] 10-325] 1 tab PO Q6H PRN PRN Reason: Pain Discharge Medication List Allopurinol [Zyloprim] 300 mg PO HS 03/23/16 [History] Aspirin 81 mg PO HS 03/23/16 [History] Cholecalciferol [Vitamin D3] 1,000 unit PO DAILY 03/23/16 [History] Finasteride [Proscar] 5 mg PO HS 03/23/16 [History] Losartan [Cozaar] 50 mg PO HS 03/23/16 [History] MORPHINE 2mg/mL PO 5mL CUP [Morphine Oral Soln 2 MG/ML] 3 mg PO TID 03/23/16 [ History] Metoprolol Succinate (ER) [Toprol XL] 50 mg PO BID 03/23/16 [History] Pravastatin Sodium [Pravachol] 20 mg PO MOTUWETHFR 03/23/16 [History] Ranitidine HCl 300 mg PO HS 03/23/16 [History] Terazosin HCl [Hytrin] 10 mg PO HS 03/23/16 [History] Zolpidem [Ambien] 10 mg PO HS PRN 03/23/16 [History] Levothyroxine Sodium [Synthroid] 50 mcg PO DAILY@0630 #30 tab 03/28/16 [Rx] Amiodarone [Cordarone] 50 mg PO DAILY 10/29/16 [History] Furosemide [Lasix] 40 mg PO DAILY 10/29/16 [History] HYDROcodone/APAP 10-325MG [[place] 10-325] 1 tab PO Q6H PRN 10/29/16 [History] Activity/Diet/Wound Care/Special Instructions: PATIENT EDUCATION MATERIAL Instructions following a heart rhythm device implant. 1. Keep dressing DRY for ONE week. You may cover the area with Saran or Cling Wrap, prior to a shower. 2. The dressing will be removed after one week in the Device Clinic @ [facility]. Absorbable sutures were used to close the wound. 3. Avoid raising the [left] arm above the shoulder level. [1 week restriction] 4. Avoid arm movements, like backscratching, rubbing the head, or pulling on a cord. (6 weeks restriction) 5. Gentle range of motion movements of the shoulder, closest to the incision should be performed to avoid a frozen shoulder. (Pendulum exercises of the shoulder) 6. The opposite arm may be used freely. 7. Avoid driving for 7 days. 8. Avoid activities such as golfing, swimming, weed whacking, lifting more than 10 pounds weight, bowling, gymnastics and weight training/lifting. (1 weeks restriction) 9. Activities such as wood chopping with an axe, pull-ups in the gymnasium, power lifting, arc-welding, being close to home induction cooktops will always be a problem. In case of any problems, please call [facility], [place], @ [phone], Attention: Device Clinic Follow-up in the device clinic in 5-[address] Magaña as scheduled, no change in home medications Discharge Disposition: HOME SELF-CARE
== END 2016-11-05 12:12 | disposition home or self-care (01) ==
LOC: CATHEP 05:53 → 3OBS 08:38 → CATHEP 11-05 12:12
PROVIDERS: ATTEND Internal Medicine Clinical Cardiac Electrophysiology
DX: I25.5 Ischemic cardiomyopathy (principal); Z45.02 Encounter for adjustment and management of automatic implantable cardiac defibrillator; I44.7 Left bundle-branch block, unspecified; I38 Endocarditis, valve unspecified; I50.9 Heart failure, unspecified; Z95.1 Presence of aortocoronary bypass graft; Z79.82 Long term (current) use of aspirin; Z79.899 Other long term (current) drug therapy; Z88.0 Allergy status to penicillin
CPT/HCPCS: 33229; 80048; 85025; C1882; S0138; J2250; J2001; J3010

== ENCOUNTER 2016-11-08 23:08 | Emergency (ER) | payer MEDICARE, BC ==
--- NOTE | 2016-11-08 23:57 | ED ---
General Adult HPI - General Chief complaint: Skin/Abscess/Foreign Body Stated complaint: swelling/burning around defibrillator Time Seen by Provider: 11/08/16 23:31 Source: patient, RN notes reviewed Mode of arrival: wheelchair Limitations: no limitations - History of Present Illness Initial comments: This an 86-year-old male presents emergency Department chief complaint of swelling around his defibrillator. Patient states that it his defibrillator replaced for Dr. Ling on Friday. Patient states that he noticed some swelling yesterday worse today. Patient states that he has a burning sensation around it. Patient states is mild redness but no drainage. Patient denies any fever, chills, chest pain or shortness of breath. Patient states that he did not contact his service assistant or had a follow-up appointment at this point. - Related Data Home Medications Medication Instructions Recorded Confirmed Allopurinol [Zyloprim] 300 mg PO HS 03/23/16 11/08/16 Aspirin 81 mg PO HS 03/23/16 11/08/16 Cholecalciferol [Vitamin D3] 1,000 unit PO DAILY 03/23/16 11/08/16 Finasteride [Proscar] 5 mg PO HS 03/23/16 11/08/16 Losartan [Cozaar] 50 mg PO HS 03/23/16 11/08/16 MORPHINE 2mg/mL PO 5mL CUP 3 mg PO TID 03/23/16 11/08/16 [Morphine Oral Soln 2 MG/ML] Metoprolol Succinate (ER) [Toprol 50 mg PO BID 03/23/16 11/08/16 XL] Pravastatin Sodium [Pravachol] 20 mg PO MOTUWETHFR 03/23/16 11/08/16 Ranitidine HCl 300 mg PO HS 03/23/16 11/08/16 Terazosin HCl [Hytrin] 10 mg PO HS 03/23/16 11/08/16 Zolpidem [Ambien] 10 mg PO HS PRN 03/23/16 11/08/16 Furosemide [Lasix] 40 mg PO DAILY 10/29/16 11/08/16 HYDROcodone/APAP 10-325MG [[place] 1 tab PO Q6H PRN 10/29/16 11/08/16 10-325] Amiodarone [Cordarone] 50 mg PO DAILY 11/08/16 11/08/16 Previous Rx's Medication Instructions Recorded Levothyroxine Sodium [Synthroid] 50 mcg PO DAILY@0630 #30 tab 03/28/16 Allergies Allergy/AdvReac Type Severity Reaction Status Date / Time Penicillins Allergy Rash/Hives Verified 11/08/16 23:34 pneumococcal vaccine Allergy Rash/Hives Verified 11/08/16 23:34 Review of Systems ROS Statement: Those systems with pertinent positive or pertinent negative responses have been documented in the HPI. ROS Other: All systems not noted in ROS Statement are negative. Past Medical History Past Medical History: GERD/Reflux, Hyperlipidemia, Hypertension, Myocardial Infarction (IN), Osteoarthritis (OA), Prostate Disorder, Thyroid Disorder Additional Past Medical History / Comment(s): SEE DR LING'S HISTORY AND PHYSICAL FOR CARDIAC HISTORY,LEG PAIN ,HIATAL HERNIA Last Myocardial Infarction Date:: MAR 2016 History of Any Multi-Drug Resistant Organisms: None Reported Past Surgical History: AICD, Appendectomy, Bowel Resection, Cardiac Valve Replacement, Coronary Bypass/CABG Additional Past Surgical History / Comment(s): 1 vessel CABG and aortic valve replacement in 2004, pacemaker/AICD, bilateral cataract removal and intraocular lens implants, hemorrhoidectomy Past Anesthesia/Blood Transfusion Reactions: No Reported Reaction Type of Cardiac Device: Permanent Pacemaker, AICD Device Placement Date:: 2007 Past Psychological History: No Psychological Hx Reported Smoking Status: Former smoker Past Alcohol Use History: None Reported Past Drug Use History: None Reported - Past Family History Father Additional Family Medical History / Comment(s): Father at a young age in a house fire. Mother Additional Family Medical History / Comment(s): Mother in her 70s from congestive heart failure and coronary artery disease. Brother(s) Additional Family Medical History / Comment(s): Patient has 2 brothers. One from alcoholic cirrhosis. One is alive with history of osteoarthritis. Sister(s) Family Medical History: Cancer Additional Family Medical History / Comment(s): Patient has one sister with recurrence of breast cancer. Daughter(s) Additional Family Medical History / Comment(s): Patient has one daughter with osteoarthritis of the spine. Son(s) Additional Family Medical History / Comment(s): Patient has 2 sons one has osteoarthritis and chronic back pain. One has bipolar disorder. General Exam Limitations: no limitations General appearance: alert, in no apparent distress Head exam: Present: atraumatic, normocephalic, normal inspection Neck exam: Present: normal inspection, full ROM. Absent: tenderness, meningismus, lymphadenopathy Respiratory exam: Present: normal lung sounds bilaterally, other (Left anterior chest wall there is an incision with Steri-Strips noted there is no significant erythema or drainage there is moderate amount of swelling noted with minimal tenderness no warmth with palpation). Absent: respiratory distress, wheezes, rales, rhonchi, stridor Cardiovascular Exam: Present: regular rate, normal rhythm, normal heart sounds. Absent: systolic murmur, diastolic murmur, rubs, gallop, clicks Course Vital Signs 11/08/16 11/09/16 23:16 00:16 Temperature 97.4 F L 97.2 F L Pulse Rate 70 68 Respiratory 18 16 Rate Blood Pressure 116/91 121/56 O2 Sat by Pulse 97 95 Oximetry Medical Decision Making - Medical Decision Making 86-year-old male present emergency Department chief complaint of swelling on his defibrillator. This does not appear to be infectious at this time there is no leukocytosis, fever or erythema at this site. Patient also likely has postoperative swelling. He was evaluated by Dr. Dupont in the emergency Department also. Patient will follow-up with service assistant. Return parameters were discussed. - Lab Data Result diagrams: 11/09/16 00:13 11/09/16 00:13 Lab Results 11/09/16 11/09/16 Range/Units 00:13 00:13 WBC 3.4 L (3.8-10.6) k/uL RBC 3.02 L (4.30-5.90) m/uL Hgb 8.2 L (13.0-17.5) gm/dL Hct 26.6 L (39.0-53.0) % MCV 88.1 (80.0-100.0) fL MCH 27.0 (25.0-35.0) pg MCHC 30.6 L (31.0-37.0) g/dL RDW 17.8 H (11.5-15.5) % Plt Count 90 L (150-450) k/uL Neutrophils % 69 % Lymphocytes % 20 % Monocytes % 6 % Eosinophils % 0 % Basophils % 0 % Neutrophils # 2.3 (1.3-7.7) k/uL Lymphocytes # 0.7 L (1.0-4.8) k/uL Monocytes # 0.2 (0-1.0) k/uL Eosinophils # 0.0 (0-0.7) k/uL Basophils # 0.0 (0-0.2) k/uL Manual Slide Review Performed Hypochromasia Moderate Poikilocytosis Slight Anisocytosis Slight Sodium 138 (137-145) mmol/L Potassium 4.0 (3.5-5.1) mmol/L Chloride 106 (98-107) mmol/L Carbon Dioxide 23 (22-30) mmol/L Anion Gap 9 mmol/L BUN 16 (9-20) mg/dL Creatinine 1.10 (0.66-1.25) mg/dL Est GFR (MDRD) Af Amer >60 (>60 ml/min/1.73 sqM) Est GFR (MDRD) Non-Af >60 (>60 ml/min/1.73 sqM) Glucose 93 (74-99) mg/dL Calcium 8.8 (8.4-10.2) mg/dL Disposition Clinical Impression: Swelling of surgical site, Chest wall hematoma Disposition: HOME SELF-CARE Condition: Stable Instructions: Hematoma (ED) Additional Instructions: Follow-up with your service assistant as directed.Please return to the Emergency Department if symptoms worsen or any other concerns. Referrals: Brayan An MD [Primary Care Provider] - 1-2 days Time of Disposition: 01:33
[2016-11-09 00:34] LABS: Anisocytosis Slight; Basophils % (A) 0 %; CH 27.5; CHCM 31.3; Eosinophils % (A) 0 %; HCT 26.6 % (39.0-53.0); HDW 3.47; HGB 8.2 gm/dL (13.0-17.5); Hypochromasia Moderate; Luc # (Auto) 0.14; Luc % (Auto) 4; Lymphocytes # (A) 0.7 k/uL (1.0-4.8); Lymphocytes % (A) 20 %; MCHC 30.6 g/dL (31.0-37.0); MCV 88.1 fL (80.0-100.0); Mean Platelet Volume 8.6; Monocytes # (A) 0.2 k/uL (0-1.0); Monocytes % (A) 6 %; Neutrophils # (A) 2.3 k/uL (1.3-7.7); Neutrophils % (A) 69 %; Poikilocytosis Slight; RBC 3.02 m/uL (4.30-5.90); RDW 17.8 % (11.5-15.5); WBC 3.4 k/uL (3.8-10.6)
[2016-11-09 00:45] LABS: Anion Gap 9 mmol/L; Blood Urea Nitrogen 16 mg/dL (9-20); Calcium 8.8 mg/dL (8.4-10.2); Carbon Dioxide 23 mmol/L (22-30); Chloride 106 mmol/L (98-107); Glucose 93 mg/dL (74-99); Non-African American GFR(MDRD) >60 (>60 ml/min/1.73 sqM); Sodium 138 mmol/L (137-145)
[2016-11-09 01:00] LABS: Manual Review Performed
--- NOTE | 2016-11-09 01:23 | XR ---
EXAM: XR Chest, 2 Views CLINICAL HISTORY: Reason: Pain TECHNIQUE: Frontal and lateral views of the chest. COMPARISON: 03/27/16 FINDINGS: Lungs: Unremarkable. No consolidation. Pleural space: Unremarkable. No pneumothorax. Heart: Mild cardiomegaly. CABG changes noted. Mediastinum: Unremarkable. Bones/joints: Unremarkable. Tubes, lines and devices: Left chest AICD in place with stable leads. IMPRESSION: No acute findings.
[2016-11-09 01:53] VITALS: BP 117/64; PULSE 62; RESP 18; TEMP 97.9
== END 2016-11-09 01:54 | disposition home or self-care (01) ==
LOC: EC 23:08
DX: I97.630 Postprocedural hematoma of a circulatory system organ or structure following a cardiac catheterization (principal); K21.9 Gastro-esophageal reflux disease without esophagitis; E78.5 Hyperlipidemia, unspecified; I10 Essential (primary) hypertension; I25.2 Old myocardial infarction; M19.90 Unspecified osteoarthritis, unspecified site; N42.9 Disorder of prostate, unspecified; Z82.49 Family history of ischemic heart disease and other diseases of the circulatory system; Z87.891 Personal history of nicotine dependence; Z88.0 Allergy status to penicillin; Z88.7 Allergy status to serum and vaccine; Z79.82 Long term (current) use of aspirin; Z79.891 Long term (current) use of opiate analgesic; Z79.899 Other long term (current) drug therapy; Y83.8 Other surgical procedures as the cause of abnormal reaction of the patient, or of later complication, without mention of misadventure at the time of the procedure
CPT/HCPCS: 36415; 71020; 80048; 85025; 87040; 87077; 87186; 99283